=== PATIENT | male | born 1960 | race African-American/Black ===

== ENCOUNTER 2021-09-24 09:13 | Inpatient (IN) | payer OTHER ==
[2021-09-24 10:24] VITALS: BMI 27.0
[2021-09-24] MEDS ORDERED: chlordiazePOXIDE HCL 25 MG CAPSULE PO SCH (11:00)
[2021-09-24] MEDS ORDERED: chlordiazePOXIDE HCL 25 MG CAPSULE PO PRN (11:16)
[2021-09-24] MEDS ORDERED: MAGNESIUM CITRATE 300 ML BOTTLE PO PRN (11:16)
[2021-09-24] MEDS ORDERED: DICYCLOMINE HCL 10 MG CAPSULE PO PRN (11:16)
[2021-09-24] MEDS ORDERED: IBUPROFEN 600 MG TABLET (FP) PO PRN (11:16)
[2021-09-24] MEDS ORDERED: LOPERAMIDE HCL 2 MG CAPSULE PO PRN (11:16)
[2021-09-24] MEDS ORDERED: NICOTINE 10 MG CARTRIDGE (INHALER) IH PRN (11:16)
[2021-09-24] MEDS ORDERED: ONDANSETRON *ODT* 4 MG TABLET SL PRN (11:16)
[2021-09-24] MEDS ORDERED: ACETAMINOPHEN 325 MG TABLET (FP) PO PRN ×2 (11:16)
[2021-09-24] MEDS ORDERED: IBUPROFEN 400 MG TABLET (FP) PO PRN (11:16)
[2021-09-24] MEDS ORDERED: MAG HYDROX/AL HYDROX/SIMETH 30 ML UNIT-DOSE CUP PO PRN (11:16)
[2021-09-24] MEDS ORDERED: MAGNESIUM HYDROX 2400MG/30ML ORAL SUSPENSION 30 ML CUP PO PRN (11:16)
[2021-09-24] MEDS ORDERED: BENZOCAINE/MENTHOL (CHLORASEPTIC ) LOZENGE MM PRN (11:16)
[2021-09-24] MEDS ORDERED: BISMUTH SUBSALICYLATE 262 MG/15 ML BTL PO PRN (11:16)
[2021-09-24] MEDS ORDERED: methaDONE HCL 40 MG DISPERSABLE TABLET PO SCH (11:30)
[2021-09-24] MEDS ORDERED: methaDONE HCL 10 MG TABLET ONE (11:51)
[2021-09-24] MEDS ORDERED: methaDONE HCL 40 MG DISPERSABLE TABLET ONE (11:52)
[2021-09-24] MEDS: methaDONE 40 MG, methaDONE 10 MG PO SCH (12:00)
[2021-09-24] MEDS: PRENATAL VITAMINS W/ FOLIC ACID TABLET (FP) PO SCH (12:09)
[2021-09-24] MEDS: NICOTINE 14 MG/24 HOURS TOPICAL PATCH TD SCH (12:09)
[2021-09-24 14:36] LABS: HEMATOCRIT 40.2 % (35.4-49); HEMOGLOBIN 13.1 GM/dL (11.7-16.9); MCH 29.9 pg (25.7-33.7); MCHC 32.6 g/dl (32.0-35.9); MEAN CELL VOLUME 91.8 fl (80-96); MEAN PLT VOLUME 8.9 fl (7.5-11.1); PLATELET COUNT 312 10^3/uL (134-434); RBC 4.38 M/mm3 (4.00-5.60); RDW 13.3 % (11.9-15.9)
[2021-09-24] MEDS: hydrOXYzine PAMOATE 25 MG CAPSULE (FP) PO SCH ×3 (15:13→22:14)
[2021-09-24 15:58] LABS: ALBUMIN 3.9 g/dl (3.4-5.0); CALCIUM 9.2 mg/dL (8.5-10.1)
[2021-09-24 16:01] LABS: CREATININE 1.2 mg/dL (0.55-1.3)
[2021-09-24 16:03] LABS: BILIRUBIN,TOTAL 0.5 mg/dL (0.2-1); TOT PROT 7.8 g/dl (6.4-8.2)
[2021-09-24] MEDS: chlordiazePOXIDE HCL 25 MG CAPSULE PO SCH ×2 (17:36→22:14)
[2021-09-24] MEDS ORDERED: SUVOREXANT 10 MG TABLET PO PRN (22:00)
[2021-09-24] MEDS ORDERED: MELATONIN 5 MG TABLETS PO SCH (22:00)
[2021-09-24] MEDS: THIAMINE HCL 100 MG TABLET (FP) PO SCH (22:14)
[2021-09-25] MEDS: hydrOXYzine PAMOATE 25 MG CAPSULE (FP) PO SCH ×5 (05:09→22:14)
[2021-09-25] MEDS: chlordiazePOXIDE HCL 25 MG CAPSULE PO SCH ×3 (05:09→18:03)
[2021-09-25] MEDS ORDERED: methaDONE HCL 40 MG DISPERSABLE TABLET ONE (09:19)
[2021-09-25] MEDS ORDERED: methaDONE HCL 10 MG TABLET ONE (09:19)
[2021-09-25] MEDS: METHOCARBAMOL 500 MG TABLET PO PRN (10:09)
[2021-09-25] MEDS: NICOTINE 14 MG/24 HOURS TOPICAL PATCH TD SCH (10:09)
[2021-09-25] MEDS: ARIPiprazole 5 MG TABLET PO SCH (10:09)
[2021-09-25] MEDS: PRENATAL VITAMINS W/ FOLIC ACID TABLET (FP) PO SCH (10:09)
[2021-09-25] MEDS: methaDONE 40 MG, methaDONE 10 MG PO SCH (10:09)
[2021-09-25] MEDS: THIAMINE HCL 100 MG TABLET (FP) PO SCH (22:14)
[2021-09-26] MEDS: chlordiazePOXIDE HCL 25 MG CAPSULE PO SCH ×5 (01:13→23:00)
[2021-09-26] MEDS: hydrOXYzine PAMOATE 25 MG CAPSULE (FP) PO SCH ×5 (05:07→23:00)
[2021-09-26] MEDS ORDERED: methaDONE HCL 40 MG DISPERSABLE TABLET ONE (09:31)
[2021-09-26] MEDS ORDERED: methaDONE HCL 10 MG TABLET ONE (09:31)
[2021-09-26] MEDS: methaDONE 40 MG, methaDONE 10 MG PO SCH (10:02)
[2021-09-26] MEDS: METHOCARBAMOL 500 MG TABLET PO PRN (10:03)
[2021-09-26] MEDS: NICOTINE 14 MG/24 HOURS TOPICAL PATCH TD SCH (10:05)
[2021-09-26] MEDS: ARIPiprazole 5 MG TABLET PO SCH (10:05)
[2021-09-26] MEDS: PRENATAL VITAMINS W/ FOLIC ACID TABLET (FP) PO SCH (10:05)
[2021-09-26] MEDS: THIAMINE HCL 100 MG TABLET (FP) PO SCH (23:00)
[2021-09-27] MEDS ORDERED: chlordiazePOXIDE HCL 10 MG CAPSULE PO PRN
[2021-09-27] MEDS: chlordiazePOXIDE HCL 10 MG CAPSULE PO SCH ×4 (05:25→22:37)
[2021-09-27] MEDS: hydrOXYzine PAMOATE 25 MG CAPSULE (FP) PO SCH ×5 (05:25→22:37)
[2021-09-27] MEDS ORDERED: methaDONE HCL 10 MG TABLET ONE (09:05)
[2021-09-27] MEDS ORDERED: methaDONE HCL 40 MG DISPERSABLE TABLET ONE (09:05)
[2021-09-27] MEDS: ARIPiprazole 5 MG TABLET PO SCH (10:20)
[2021-09-27] MEDS: PRENATAL VITAMINS W/ FOLIC ACID TABLET (FP) PO SCH (10:20)
[2021-09-27] MEDS: methaDONE 40 MG, methaDONE 10 MG PO SCH (10:20)
[2021-09-27] MEDS: NICOTINE 14 MG/24 HOURS TOPICAL PATCH TD SCH (10:21)
[2021-09-27] MEDS: METHOCARBAMOL 500 MG TABLET PO PRN (10:22)
[2021-09-27] MEDS: THIAMINE HCL 100 MG TABLET (FP) PO SCH (22:37)
[2021-09-28] MEDS: chlordiazePOXIDE HCL 10 MG CAPSULE PO SCH ×2 (05:14→18:46)
[2021-09-28] MEDS: hydrOXYzine PAMOATE 25 MG CAPSULE (FP) PO SCH ×5 (05:14→22:18)
[2021-09-28] MEDS ORDERED: methaDONE HCL 40 MG DISPERSABLE TABLET ONE (09:36)
[2021-09-28] MEDS ORDERED: methaDONE HCL 10 MG TABLET ONE (09:36)
[2021-09-28] MEDS: ARIPiprazole 5 MG TABLET PO SCH (10:08)
[2021-09-28] MEDS: NICOTINE 14 MG/24 HOURS TOPICAL PATCH TD SCH (10:09)
[2021-09-28] MEDS: methaDONE 40 MG, methaDONE 10 MG PO SCH (10:09)
[2021-09-28] MEDS: PRENATAL VITAMINS W/ FOLIC ACID TABLET (FP) PO SCH (10:09)
[2021-09-28] MEDS: METHOCARBAMOL 500 MG TABLET PO PRN (10:09)
[2021-09-28] MEDS ORDERED: cloNIDine HCL 0.1 MG TABLET PO ONE (11:01)
[2021-09-28] MEDS: THIAMINE HCL 100 MG TABLET (FP) PO SCH (22:19)
[2021-09-29] MEDS ORDERED: chlordiazePOXIDE HCL 10 MG CAPSULE PO ONE (05:00)
[2021-09-29] MEDS: hydrOXYzine PAMOATE 25 MG CAPSULE (FP) PO SCH ×2 (05:08→09:16)
[2021-09-29] MEDS ORDERED: methaDONE HCL 10 MG TABLET PO ONE (07:15)
[2021-09-29] MEDS ORDERED: methaDONE HCL 10 MG TABLET ONE (07:43)
[2021-09-29] MEDS ORDERED: methaDONE HCL 40 MG DISPERSABLE TABLET ONE (07:44)
[2021-09-29 08:58] VITALS: BP 136/79; PULSE 68; TEMP 97.3
[2021-09-29] MEDS: ARIPiprazole 5 MG TABLET PO SCH (09:15)
[2021-09-29] MEDS: NICOTINE 14 MG/24 HOURS TOPICAL PATCH TD SCH (09:15)
[2021-09-29] MEDS: methaDONE 40 MG, methaDONE 10 MG PO SCH (09:15)
[2021-09-29] MEDS: PRENATAL VITAMINS W/ FOLIC ACID TABLET (FP) PO SCH (09:16)
== END 2021-09-29 09:02 | disposition home or self-care (01) | DRG 773 ==
LOC: YASAS 09:13 → Y6N 11:16
PROVIDERS: ADMIT Allergy & Immunology; ATTEND Surgery
PROC: HZ2ZZZZ Detoxification Services for Substance Abuse Treatment (ICD-10-PCS; principal; 2021-09-24)
DX: F11.23 Opioid dependence with withdrawal (principal); F10.230 Alcohol dependence with withdrawal, uncomplicated; F14.20 Cocaine dependence, uncomplicated; F13.20 Sedative, hypnotic or anxiolytic dependence, uncomplicated; F17.210 Nicotine dependence, cigarettes, uncomplicated; F25.9 Schizoaffective disorder, unspecified; F19.280 Other psychoactive substance dependence with psychoactive substance-induced anxiety disorder; F19.282 Other psychoactive substance dependence with psychoactive substance-induced sleep disorder; F19.24 Other psychoactive substance dependence with psychoactive substance-induced mood disorder; M17.0 Bilateral primary osteoarthritis of knee; R03.0 Elevated blood-pressure reading, without diagnosis of hypertension; R73.9 Hyperglycemia, unspecified; Z90.5 Acquired absence of kidney
CPT/HCPCS: 36415; 80053; 83036; 85027; 86780; 87811; 93005; 93010; C9803-CS; J0735; U0003; U0005

== ENCOUNTER 2021-11-05 13:58 | Inpatient (IN) | payer OTHER ==
[2021-11-05 15:14] VITALS: RESP 18; BMI 27.0
[2021-11-05] MEDS ORDERED: NICOTINE 10 MG CARTRIDGE (INHALER) IH PRN (18:09)
[2021-11-05] MEDS ORDERED: ONDANSETRON *ODT* 4 MG TABLET SL PRN (18:09)
[2021-11-05] MEDS ORDERED: METHOCARBAMOL 500 MG TABLET PO PRN (18:09)
[2021-11-05] MEDS ORDERED: DICYCLOMINE HCL 10 MG CAPSULE PO PRN (18:09)
[2021-11-05] MEDS ORDERED: MAGNESIUM CITRATE 300 ML BOTTLE PO PRN (18:09)
[2021-11-05] MEDS ORDERED: chlordiazePOXIDE HCL 25 MG CAPSULE PO PRN (18:09)
[2021-11-05] MEDS ORDERED: ACETAMINOPHEN 325 MG TABLET (FP) PO PRN ×2 (18:09)
[2021-11-05] MEDS ORDERED: LOPERAMIDE HCL 2 MG CAPSULE PO PRN (18:09)
[2021-11-05] MEDS ORDERED: IBUPROFEN 400 MG TABLET (FP) PO PRN (18:09)
[2021-11-05] MEDS ORDERED: MAG HYDROX/AL HYDROX/SIMETH 30 ML UNIT-DOSE CUP PO PRN (18:09)
[2021-11-05] MEDS ORDERED: MAGNESIUM HYDROX 2400MG/30ML ORAL SUSPENSION 30 ML CUP PO PRN (18:09)
[2021-11-05] MEDS ORDERED: BENZOCAINE/MENTHOL (CHLORASEPTIC ) LOZENGE MM PRN (18:09)
[2021-11-05] MEDS ORDERED: BISMUTH SUBSALICYLATE 524 MG/30 ML PO PRN (18:09)
[2021-11-05] MEDS ORDERED: IBUPROFEN 600 MG TABLET (FP) PO PRN (18:09)
[2021-11-05] MEDS ORDERED: methaDONE HCL 40 MG DISPERSABLE TABLET PO SCH (18:15)
[2021-11-05] MEDS ORDERED: chlordiazePOXIDE HCL 25 MG CAPSULE ONE (19:02)
[2021-11-05] MEDS: chlordiazePOXIDE HCL 25 MG CAPSULE PO SCH ×2 (19:02→22:53)
[2021-11-05] MEDS ORDERED: PRENATAL VITAMINS W/ FOLIC ACID TABLET (FP) PO SCH (19:30)
[2021-11-05] MEDS ORDERED: NICOTINE 14 MG/24 HOURS TOPICAL PATCH TD SCH (19:30)
[2021-11-05] MEDS ORDERED: THIAMINE HCL 100 MG TABLET (FP) PO SCH (22:00)
[2021-11-05] MEDS ORDERED: MELATONIN 5 MG TABLETS PO SCH (22:00)
[2021-11-05] MEDS: hydrOXYzine PAMOATE 25 MG CAPSULE (FP) PO SCH (22:53)
[2021-11-06 06:15] VITALS: BP 135/65; PULSE 50; TEMP 97.8
[2021-11-06] MEDS: chlordiazePOXIDE HCL 25 MG CAPSULE PO SCH (08:12)
[2021-11-06] MEDS: hydrOXYzine PAMOATE 25 MG CAPSULE (FP) PO SCH (08:13)
[2021-11-06 10:12] LABS: HEMATOCRIT 36.8 % (35.4-49); HEMOGLOBIN 12.2 GM/dL (11.7-16.9); MCH 30.1 pg (25.7-33.7); MCHC 33.1 g/dl (32.0-35.9); MEAN CELL VOLUME 90.9 fl (80-96); MEAN PLT VOLUME 8.7 fl (7.5-11.1); PLATELET COUNT 241 10^3/uL (134-434); RBC 4.05 M/mm3 (4.00-5.60); RDW 13.8 % (11.9-15.9); WHITE BLOOD COUNT 4.7 K/mm3 (4.0-10.0)
[2021-11-06 10:34] LABS: ALBUMIN 3.1 g/dl (3.4-5.0); BLOOD UREA NITROGEN 12.4 mg/dL (7-18)
[2021-11-06 10:39] LABS: BILIRUBIN,TOTAL 0.8 mg/dL (0.2-1); TOT PROT 6.5 g/dl (6.4-8.2)
[2021-11-07] MEDS ORDERED: chlordiazePOXIDE HCL 25 MG CAPSULE PO SCH (05:00)
[2021-11-08] MEDS ORDERED: chlordiazePOXIDE HCL 10 MG CAPSULE PO PRN
[2021-11-08] MEDS ORDERED: chlordiazePOXIDE HCL 10 MG CAPSULE PO SCH (05:00)
[2021-11-09] MEDS ORDERED: chlordiazePOXIDE HCL 10 MG CAPSULE PO SCH (05:00)
[2021-11-10] MEDS ORDERED: chlordiazePOXIDE HCL 10 MG CAPSULE PO ONE (05:00)
== END 2021-11-06 09:58 | disposition home or self-care (01) | DRG 773 ==
LOC: YASAS 13:58 → Y6N 18:35
PROVIDERS: ADMIT Allergy & Immunology; ATTEND Surgery
PROC: HZ2ZZZZ Detoxification Services for Substance Abuse Treatment (ICD-10-PCS; principal; 2021-11-05)
DX: F10.230 Alcohol dependence with withdrawal, uncomplicated (principal); F11.20 Opioid dependence, uncomplicated; F14.20 Cocaine dependence, uncomplicated; F13.20 Sedative, hypnotic or anxiolytic dependence, uncomplicated; F17.210 Nicotine dependence, cigarettes, uncomplicated; F25.9 Schizoaffective disorder, unspecified; M17.0 Bilateral primary osteoarthritis of knee; Z99.89 Dependence on other enabling machines and devices
CPT/HCPCS: 36415; 80053; 85027; 86780; C9803-CS; U0003; U0005

== ENCOUNTER 2021-11-15 14:56 | Inpatient (IN) | payer OTHER ==
[2021-11-15 15:46] VITALS: BMI 26.7
[2021-11-15] MEDS ORDERED: MAG HYDROX/AL HYDROX/SIMETH 30 ML UNIT-DOSE CUP PO PRN (16:23)
[2021-11-15] MEDS ORDERED: BENZOCAINE/MENTHOL (CHLORASEPTIC ) LOZENGE MM PRN (16:23)
[2021-11-15] MEDS ORDERED: P-EPHED 60MG/TRIPROLIDI 2.5MG TABLET PO PRN (16:23)
[2021-11-15] MEDS ORDERED: ACETAMINOPHEN 325 MG TABLET (FP) PO PRN ×2 (16:23)
[2021-11-15] MEDS ORDERED: guaiFENesin 200 MG/10 ML 10 ML UNIT-DOSE CUPS PO PRN (16:23)
[2021-11-15] MEDS ORDERED: NICOTINE POLACRILEX 2 MG GUM BUC PRN (16:23)
[2021-11-15] MEDS ORDERED: MAGNESIUM HYDROX 2400MG/30ML ORAL SUSPENSION 30 ML CUP PO PRN (16:23)
[2021-11-15] MEDS ORDERED: IBUPROFEN 600 MG TABLET (FP) PO PRN (16:23)
[2021-11-15] MEDS ORDERED: BISMUTH SUBSALICYLATE 524 MG/30 ML PO PRN (16:23)
[2021-11-15] MEDS ORDERED: LOPERAMIDE HCL 2 MG CAPSULE PO PRN (16:23)
[2021-11-15] MEDS ORDERED: MAGNESIUM CITRATE 300 ML BOTTLE PO PRN (16:23)
[2021-11-15] MEDS ORDERED: IBUPROFEN 400 MG TABLET (FP) PO PRN (16:23)
[2021-11-15] MEDS ORDERED: MELATONIN 5 MG TABLETS PO PRN (16:23)
[2021-11-15] MEDS ORDERED: DICYCLOMINE HCL 10 MG CAPSULE PO PRN (16:23)
[2021-11-15] MEDS ORDERED: ONDANSETRON *ODT* 4 MG TABLET SL PRN (16:23)
[2021-11-15] MEDS ORDERED: diazePAM 5 MG TABLET PO PRN (16:25)
[2021-11-15] MEDS: diazePAM 5 MG TABLET PO SCH (22:28)
[2021-11-15] MEDS: THIAMINE HCL 100 MG TABLET (FP) PO SCH (22:28)
[2021-11-15] MEDS: hydrOXYzine PAMOATE 25 MG CAPSULE (FP) PO PRN (22:28)
[2021-11-15] MEDS: METHOCARBAMOL 500 MG TABLET PO PRN (22:28)
[2021-11-16] MEDS: diazePAM 5 MG TABLET PO SCH ×4 (05:42→23:08)
[2021-11-16] MEDS ORDERED: methaDONE HCL 10 MG TABLET PO ONE (10:07)
[2021-11-16] MEDS: PRENATAL VITAMINS W/ FOLIC ACID TABLET (FP) PO SCH (10:58)
[2021-11-16] MEDS: amLODIPine BESYLATE 10 MG TABLET (FP) PO SCH (10:58)
[2021-11-16] MEDS: hydrOXYzine PAMOATE 25 MG CAPSULE (FP) PO PRN ×3 (10:59→23:07)
[2021-11-16] MEDS: METHOCARBAMOL 500 MG TABLET PO PRN ×2 (10:59→17:27)
[2021-11-16] MEDS: cloNIDine HCL 0.1 MG TABLET PO PRN (10:59)
[2021-11-16 12:45] LABS: CALCIUM 9.1 mg/dL (8.5-10.1); HEMATOCRIT 42.2 % (35.4-49); HEMOGLOBIN 13.5 GM/dL (11.7-16.9); MCH 29.1 pg (25.7-33.7); MCHC 31.9 g/dl (32.0-35.9); MEAN PLT VOLUME 8.8 fl (7.5-11.1); PLATELET COUNT 317 10^3/uL (134-434); RBC 4.64 M/mm3 (4.00-5.60); RDW 14.2 % (11.9-15.9); WHITE BLOOD COUNT 4.4 K/mm3 (4.0-10.0)
[2021-11-16 12:46] LABS: ALBUMIN 3.5 g/dl (3.4-5.0); BLOOD UREA NITROGEN 13.2 mg/dL (7-18)
[2021-11-16 12:50] LABS: BILIRUBIN,TOTAL 0.5 mg/dL (0.2-1)
[2021-11-16] MEDS: THIAMINE HCL 100 MG TABLET (FP) PO SCH (23:07)
[2021-11-17] MEDS: diazePAM 5 MG TABLET PO SCH ×3 (05:57→23:43)
[2021-11-17] MEDS ORDERED: methaDONE 40 MG, methaDONE 10 MG PO ONE (06:00)
[2021-11-17] MEDS ORDERED: methaDONE HCL 10 MG TABLET PO ONE (06:00)
[2021-11-17] MEDS: amLODIPine BESYLATE 10 MG TABLET (FP) PO SCH (10:14)
[2021-11-17] MEDS: PRENATAL VITAMINS W/ FOLIC ACID TABLET (FP) PO SCH (10:14)
[2021-11-17] MEDS: THIAMINE HCL 100 MG TABLET (FP) PO SCH (23:44)
[2021-11-18] MEDS: diazePAM 5 MG TABLET PO SCH ×2 (05:36→18:21)
[2021-11-18] MEDS: cloNIDine HCL 0.1 MG TABLET PO PRN (10:39)
[2021-11-18] MEDS: PRENATAL VITAMINS W/ FOLIC ACID TABLET (FP) PO SCH (10:39)
[2021-11-18] MEDS: METHOCARBAMOL 500 MG TABLET PO PRN (10:39)
[2021-11-18] MEDS: amLODIPine BESYLATE 10 MG TABLET (FP) PO SCH (10:39)
[2021-11-18] MEDS ORDERED: methaDONE HCL 10 MG TABLET PO ONE (11:00)
[2021-11-18] MEDS ORDERED: methaDONE 40 MG, methaDONE 10 MG PO ONE (11:15)
[2021-11-18] MEDS: hydrOXYzine PAMOATE 25 MG CAPSULE (FP) PO PRN (18:22)
[2021-11-18] MEDS: THIAMINE HCL 100 MG TABLET (FP) PO SCH (22:45)
[2021-11-19] MEDS ORDERED: methaDONE HCL 10 MG TABLET PO SCH (06:00)
[2021-11-19] MEDS ORDERED: methaDONE 40 MG, methaDONE 10 MG PO SCH (06:00)
[2021-11-19] MEDS ORDERED: diazePAM 5 MG TABLET PO ONE (06:00)
[2021-11-19 09:55] VITALS: TEMP 97.3
[2021-11-19] MEDS: METHOCARBAMOL 500 MG TABLET PO PRN (10:34)
[2021-11-19] MEDS: amLODIPine BESYLATE 10 MG TABLET (FP) PO SCH (10:34)
[2021-11-19] MEDS: PRENATAL VITAMINS W/ FOLIC ACID TABLET (FP) PO SCH (10:34)
[2021-11-19] MEDS: cloNIDine HCL 0.1 MG TABLET PO PRN (10:34)
[2021-11-19] MEDS: hydrOXYzine PAMOATE 25 MG CAPSULE (FP) PO PRN (10:34)
[2021-11-19 13:38] VITALS: BP 127/76; PULSE 64; RESP 18
== END 2021-11-19 15:00 | disposition other institution (70) | DRG 773 ==
LOC: YASAS 14:56 → Y6N 17:23
PROVIDERS: ADMIT Allergy & Immunology; ATTEND Surgery
PROC: HZ2ZZZZ Detoxification Services for Substance Abuse Treatment (ICD-10-PCS; principal; 2021-11-15)
DX: F11.23 Opioid dependence with withdrawal (principal); F10.230 Alcohol dependence with withdrawal, uncomplicated; F14.20 Cocaine dependence, uncomplicated; F17.210 Nicotine dependence, cigarettes, uncomplicated; I10 Essential (primary) hypertension; M17.0 Bilateral primary osteoarthritis of knee; M54.50 Low back pain, unspecified; G89.29 Other chronic pain; Z90.5 Acquired absence of kidney; Z99.89 Dependence on other enabling machines and devices; Z91.014 Allergy to mammalian meats
CPT/HCPCS: 36415; 80053; 82962; 85027; 86780; 87811; C9803-CS; U0003; U0005

== ENCOUNTER 2021-11-19 15:19 | Inpatient (IN) | payer OTHER ==
[2021-11-19 16:13] VITALS: RESP 18
[2021-11-19] MEDS ORDERED: MELATONIN 5 MG TABLETS PO SCH (22:00)
[2021-11-19] MEDS ORDERED: MAG HYDROX/AL HYDROX/SIMETH 30 ML UNIT-DOSE CUP PO PRN (22:15)
[2021-11-19] MEDS ORDERED: P-EPHED 60MG/TRIPROLIDI 2.5MG TABLET PO PRN (22:15)
[2021-11-19] MEDS ORDERED: MAGNESIUM CITRATE 300 ML BOTTLE PO PRN (22:15)
[2021-11-19] MEDS ORDERED: guaiFENesin 200 MG/10 ML 10 ML UNIT-DOSE CUPS PO PRN (22:15)
[2021-11-19] MEDS ORDERED: NICOTINE POLACRILEX 2 MG GUM BUC PRN (22:15)
[2021-11-19] MEDS ORDERED: LOPERAMIDE HCL 2 MG CAPSULE PO PRN (22:15)
[2021-11-19] MEDS ORDERED: MAGNESIUM HYDROX 2400MG/30ML ORAL SUSPENSION 30 ML CUP PO PRN (22:15)
[2021-11-19] MEDS ORDERED: IBUPROFEN 400 MG TABLET (FP) PO PRN (22:15)
[2021-11-19] MEDS ORDERED: BENZOCAINE/MENTHOL (CHLORASEPTIC ) LOZENGE MM PRN (22:15)
[2021-11-19] MEDS ORDERED: ACETAMINOPHEN 325 MG TABLET (FP) PO PRN (22:15)
[2021-11-20] MEDS ORDERED: methaDONE 40 MG, methaDONE 10 MG PO SCH (06:00)
[2021-11-20 07:30] VITALS: BP 138/79; PULSE 59; TEMP 96.2
[2021-11-20] MEDS ORDERED: PRENATAL VITAMINS W/ FOLIC ACID TABLET (FP) PO SCH (10:00)
[2021-11-20] MEDS ORDERED: NICOTINE 21 MG/24 HOURS TOPICAL PATCH TD SCH (10:00)
[2021-11-20] MEDS ORDERED: methaDONE HCL 40 MG DISPERSABLE TABLET PO SCH (10:00)
[2021-11-20] MEDS ORDERED: amLODIPine BESYLATE 10 MG TABLET (FP) PO SCH (10:00)
[2021-11-20] MEDS ORDERED: THIAMINE HCL 100 MG TABLET (FP) PO SCH (22:00)
== END 2021-11-20 09:16 | disposition left against medical advice (07) | DRG 770 ==
LOC: YASAS 15:19 → Y5N 15:20
PROVIDERS: ADMIT Allergy & Immunology; ATTEND Psychiatry & Neurology Pain Medicine
PROC: HZ42ZZZ Group Counseling for Substance Abuse Treatment, Cognitive-Behavioral (ICD-10-PCS; principal; 2021-11-19)
DX: F11.20 Opioid dependence, uncomplicated (principal); F10.20 Alcohol dependence, uncomplicated; F14.20 Cocaine dependence, uncomplicated; F13.20 Sedative, hypnotic or anxiolytic dependence, uncomplicated; F17.210 Nicotine dependence, cigarettes, uncomplicated; F25.9 Schizoaffective disorder, unspecified; Z99.89 Dependence on other enabling machines and devices

== ENCOUNTER 2021-12-15 11:02 | Inpatient (IN) | payer OTHER ==
[2021-12-15 11:29] VITALS: BMI 24.4
[2021-12-15] MEDS ORDERED: NICOTINE 10 MG CARTRIDGE (INHALER) IH PRN (13:04)
[2021-12-15] MEDS ORDERED: IBUPROFEN 400 MG TABLET (FP) PO PRN (13:04)
[2021-12-15] MEDS ORDERED: MAGNESIUM CITRATE 300 ML BOTTLE PO PRN (13:04)
[2021-12-15] MEDS ORDERED: ONDANSETRON *ODT* 4 MG TABLET SL PRN (13:04)
[2021-12-15] MEDS ORDERED: NALOXONE HCL (KLOXXADO) 8 MG SPRAY NS PRN (13:04)
[2021-12-15] MEDS ORDERED: LOPERAMIDE HCL 2 MG CAPSULE PO PRN (13:04)
[2021-12-15] MEDS ORDERED: DICYCLOMINE HCL 10 MG CAPSULE PO PRN (13:04)
[2021-12-15] MEDS ORDERED: BENZOCAINE/MENTHOL (CHLORASEPTIC ) LOZENGE MM PRN (13:04)
[2021-12-15] MEDS ORDERED: BISMUTH SUBSALICYLATE 262 MG/15 ML BTL PO PRN (13:04)
[2021-12-15] MEDS ORDERED: IBUPROFEN 600 MG TABLET (FP) PO PRN (13:04)
[2021-12-15] MEDS ORDERED: MAGNESIUM HYDROX 2400MG/30ML ORAL SUSPENSION 30 ML CUP PO PRN (13:04)
[2021-12-15] MEDS ORDERED: METHOCARBAMOL 500 MG TABLET PO PRN (13:04)
[2021-12-15] MEDS ORDERED: MAG HYDROX/AL HYDROX/SIMETH 30 ML UNIT-DOSE CUP PO PRN (13:04)
[2021-12-15] MEDS ORDERED: ACETAMINOPHEN 325 MG TABLET (FP) PO PRN ×2 (13:04)
[2021-12-15] MEDS ORDERED: diazePAM 5 MG TABLET PO PRN (13:04)
[2021-12-15 17:25] LABS: CALCIUM 9.4 mg/dL (8.5-10.1)
[2021-12-15 17:26] LABS: ALBUMIN 3.9 g/dl (3.4-5.0); BLOOD UREA NITROGEN 16.8 mg/dL (7-18)
[2021-12-15 17:30] LABS: BILIRUBIN,TOTAL 0.4 mg/dL (0.2-1); HEMATOCRIT 42.3 % (35.4-49); HEMOGLOBIN 13.8 GM/dL (11.7-16.9); MCH 29.9 pg (25.7-33.7); MCHC 32.6 g/dl (32.0-35.9); MEAN CELL VOLUME 91.9 fl (80-96); MEAN PLT VOLUME 8.7 fl (7.5-11.1); PLATELET COUNT 277 10^3/uL (134-434); RDW 15.5 % (11.9-15.9)
[2021-12-15 17:31] LABS: TOT PROT 7.5 g/dl (6.4-8.2)
[2021-12-15] MEDS: PRENATAL VITAMINS W/ FOLIC ACID TABLET (FP) PO SCH (19:00)
[2021-12-15] MEDS: hydrOXYzine PAMOATE 25 MG CAPSULE (FP) PO SCH ×4 (19:01→22:27)
[2021-12-15] MEDS: diazePAM 5 MG TABLET PO SCH ×2 (19:02→22:56)
[2021-12-15] MEDS: NICOTINE 14 MG/24 HOURS TOPICAL PATCH TD SCH (19:06)
[2021-12-15] MEDS ORDERED: THIAMINE HCL 100 MG TABLET (FP) PO SCH (22:00)
[2021-12-15] MEDS ORDERED: MELATONIN 5 MG TABLETS PO SCH (22:00)
[2021-12-16] MEDS: diazePAM 5 MG TABLET PO SCH ×2 (05:26→10:54)
[2021-12-16] MEDS: hydrOXYzine PAMOATE 25 MG CAPSULE (FP) PO SCH ×2 (05:26→10:59)
[2021-12-16 09:09] VITALS: RESP 16
[2021-12-16] MEDS ORDERED: amLODIPine BESYLATE 10 MG TABLET (FP) PO SCH (10:30)
[2021-12-16] MEDS ORDERED: methaDONE 40 MG, methaDONE 10 MG PO SCH (10:30)
[2021-12-16] MEDS ORDERED: methaDONE HCL 10 MG TABLET PO SCH (10:30)
[2021-12-16] MEDS: NICOTINE 14 MG/24 HOURS TOPICAL PATCH TD SCH (10:55)
[2021-12-16] MEDS: PRENATAL VITAMINS W/ FOLIC ACID TABLET (FP) PO SCH (10:56)
[2021-12-16 12:51] VITALS: BP 153/83; PULSE 77; TEMP 97.8
[2021-12-17] MEDS ORDERED: diazePAM 5 MG TABLET PO SCH (06:00)
[2021-12-18] MEDS ORDERED: diazePAM 5 MG TABLET PO SCH (06:00)
[2021-12-19] MEDS ORDERED: diazePAM 5 MG TABLET PO ONE (06:00)
== END 2021-12-16 11:33 | disposition left against medical advice (07) | DRG 770 ==
LOC: YASAS 11:02 → Y3N 12:20
PROVIDERS: ADMIT Allergy & Immunology; ATTEND Surgery
PROC: HZ2ZZZZ Detoxification Services for Substance Abuse Treatment (ICD-10-PCS; principal; 2021-12-15)
DX: F11.23 Opioid dependence with withdrawal (principal); F10.230 Alcohol dependence with withdrawal, uncomplicated; F14.20 Cocaine dependence, uncomplicated; F17.210 Nicotine dependence, cigarettes, uncomplicated; F19.24 Other psychoactive substance dependence with psychoactive substance-induced mood disorder; F25.9 Schizoaffective disorder, unspecified; F41.9 Anxiety disorder, unspecified; F32.A Depression, unspecified; M17.0 Bilateral primary osteoarthritis of knee; M54.50 Low back pain, unspecified; G89.29 Other chronic pain; Z90.5 Acquired absence of kidney
CPT/HCPCS: 36415; 80053; 82140; 85027; 86780; C9803-CS; U0003; U0005

== ENCOUNTER 2021-12-15 13:28 | Emergency (ER) | payer OTHER ==
[2021-12-15 13:40] VITALS: BP 157/83; PULSE 56; RESP 17; TEMP 98.6; BMI 25.0
== END 2021-12-15 16:34 | disposition short-term general hospital (02) ==
LOC: JERFT 13:28 → JER 13:28 → JERFT 16:34
DX: S90.852A Superficial foreign body, left foot, initial encounter (principal); W25.XXXA Contact with sharp glass, initial encounter
CPT/HCPCS: 73630-TC-LT; 99283-25

== ENCOUNTER 2022-01-22 09:05 | Inpatient (IN) | payer OTHER ==
[2022-01-22 10:44] VITALS: BMI 26.4
[2022-01-22] MEDS ORDERED: ONDANSETRON *ODT* 4 MG TABLET SL PRN (11:18)
[2022-01-22] MEDS ORDERED: NICOTINE 10 MG CARTRIDGE (INHALER) IH PRN (11:18)
[2022-01-22] MEDS ORDERED: MAG HYDROX/AL HYDROX/SIMETH 30 ML UNIT-DOSE CUP PO PRN (11:18)
[2022-01-22] MEDS ORDERED: BENZOCAINE/MENTHOL (CHLORASEPTIC ) LOZENGE MM PRN (11:18)
[2022-01-22] MEDS ORDERED: LORazepam 1 MG TABLET PO PRN (11:18)
[2022-01-22] MEDS ORDERED: MAGNESIUM CITRATE 300 ML BOTTLE PO PRN (11:18)
[2022-01-22] MEDS ORDERED: NALOXONE HCL (KLOXXADO) 8 MG SPRAY NS PRN (11:18)
[2022-01-22] MEDS ORDERED: LOPERAMIDE HCL 2 MG CAPSULE PO PRN (11:18)
[2022-01-22] MEDS ORDERED: DICYCLOMINE HCL 10 MG CAPSULE PO PRN (11:18)
[2022-01-22] MEDS ORDERED: ACETAMINOPHEN 325 MG TABLET (FP) PO PRN ×2 (11:18)
[2022-01-22] MEDS ORDERED: IBUPROFEN 400 MG TABLET (FP) PO PRN (11:18)
[2022-01-22] MEDS ORDERED: BISMUTH SUBSALICYLATE 524 MG/30 ML PO PRN (11:18)
[2022-01-22] MEDS ORDERED: MAGNESIUM HYDROX 2400MG/30ML ORAL SUSPENSION 30 ML CUP PO PRN (11:18)
[2022-01-22] MEDS ORDERED: IBUPROFEN 600 MG TABLET (FP) PO PRN (11:18)
[2022-01-22] MEDS ORDERED: methaDONE HCL 40 MG DISPERSABLE TABLET PO SCH (11:30)
[2022-01-22] MEDS ORDERED: LORazepam 2 MG TABLET ONE (12:13)
[2022-01-22] MEDS ORDERED: LORazepam 2 MG TABLET PO ONE (12:15)
[2022-01-22] MEDS ORDERED: methaDONE 40 MG, methaDONE 10 MG PO ONE (13:45)
[2022-01-22] MEDS: PRENATAL VITAMINS W/ FOLIC ACID TABLET (FP) PO SCH (13:48)
[2022-01-22] MEDS: LACTULOSE 20 GM/30 ML UDC (FOR ORAL USE ONLY) PO SCH ×2 (13:48→23:06)
[2022-01-22] MEDS: METHOCARBAMOL 500 MG TABLET PO PRN (13:48)
[2022-01-22 15:09] LABS: HEMATOCRIT 41.3 % (35.4-49); HEMOGLOBIN 13.6 GM/dL (11.7-16.9); MCH 29.8 pg (25.7-33.7); MCHC 32.9 g/dl (32.0-35.9); MEAN CELL VOLUME 90.4 fl (80-96); MEAN PLT VOLUME 8.7 fl (7.5-11.1); PLATELET COUNT 309 10^3/uL (134-434); RBC 4.56 M/mm3 (4.00-5.60); RDW 14.3 % (11.9-15.9); WHITE BLOOD COUNT 5.6 K/mm3 (4.0-10.0)
[2022-01-22 15:36] LABS: BLOOD UREA NITROGEN 18.4 mg/dL (7-18); CALCIUM 9.6 mg/dL (8.5-10.1)
[2022-01-22 15:39] LABS: CREATININE 1.1 mg/dL (0.55-1.3)
[2022-01-22 15:40] LABS: BILIRUBIN,TOTAL 0.6 mg/dL (0.2-1); TOT PROT 7.5 g/dl (6.4-8.2)
[2022-01-22] MEDS: LORazepam 2 MG TABLET PO SCH ×2 (17:53→23:06)
[2022-01-22] MEDS: THIAMINE HCL 100 MG TABLET (FP) PO SCH (23:06)
[2022-01-22] MEDS: MELATONIN 5 MG TABLETS PO SCH (23:06)
[2022-01-23] MEDS: LORazepam 2 MG TABLET PO SCH ×4 (05:48→22:42)
[2022-01-23] MEDS: methaDONE 40 MG, methaDONE 10 MG PO SCH (05:48)
[2022-01-23] MEDS: LACTULOSE 20 GM/30 ML UDC (FOR ORAL USE ONLY) PO SCH ×3 (05:48→22:40)
[2022-01-23] MEDS ORDERED: SODIUM CHLORIDE NASAL SPRAY 44 ML BOTTLE NS PRN (09:22)
[2022-01-23] MEDS: hydrOXYzine PAMOATE 25 MG CAPSULE (FP) PO PRN (10:34)
[2022-01-23] MEDS: PRENATAL VITAMINS W/ FOLIC ACID TABLET (FP) PO SCH (10:34)
[2022-01-23] MEDS: amLODIPine BESYLATE 10 MG TABLET (FP) PO SCH (10:34)
[2022-01-23] MEDS: NICOTINE 14 MG/24 HOURS TOPICAL PATCH TD SCH (10:36)
[2022-01-23] MEDS: MELATONIN 5 MG TABLETS PO SCH (22:40)
[2022-01-23] MEDS: THIAMINE HCL 100 MG TABLET (FP) PO SCH (22:40)
[2022-01-24] MEDS: methaDONE 40 MG, methaDONE 10 MG PO SCH (05:41)
[2022-01-24] MEDS: LACTULOSE 20 GM/30 ML UDC (FOR ORAL USE ONLY) PO SCH ×3 (05:41→23:04)
[2022-01-24] MEDS: LORazepam 1 MG TABLET PO SCH ×4 (05:41→23:04)
[2022-01-24] MEDS: METHOCARBAMOL 500 MG TABLET PO PRN (10:30)
[2022-01-24] MEDS: NICOTINE 14 MG/24 HOURS TOPICAL PATCH TD SCH (10:31)
[2022-01-24] MEDS: hydrOXYzine PAMOATE 25 MG CAPSULE (FP) PO PRN (10:31)
[2022-01-24] MEDS: PRENATAL VITAMINS W/ FOLIC ACID TABLET (FP) PO SCH (10:31)
[2022-01-24] MEDS: amLODIPine BESYLATE 10 MG TABLET (FP) PO SCH (10:31)
[2022-01-24] MEDS: THIAMINE HCL 100 MG TABLET (FP) PO SCH (23:04)
[2022-01-24] MEDS: MELATONIN 5 MG TABLETS PO SCH (23:04)
[2022-01-25] MEDS ORDERED: LORazepam 0.5 MG TABLET PO PRN
[2022-01-25] MEDS: LACTULOSE 20 GM/30 ML UDC (FOR ORAL USE ONLY) PO SCH (05:17)
[2022-01-25] MEDS: methaDONE 40 MG, methaDONE 10 MG PO SCH (05:18)
[2022-01-25] MEDS: LORazepam 0.5 MG TABLET PO SCH ×2 (05:18→10:21)
[2022-01-25 10:13] VITALS: BP 128/73; PULSE 71; RESP 17; TEMP 97.5
[2022-01-25] MEDS: METHOCARBAMOL 500 MG TABLET PO PRN (10:20)
[2022-01-25] MEDS: hydrOXYzine PAMOATE 25 MG CAPSULE (FP) PO PRN (10:20)
[2022-01-25] MEDS: PRENATAL VITAMINS W/ FOLIC ACID TABLET (FP) PO SCH (10:20)
[2022-01-25] MEDS: amLODIPine BESYLATE 10 MG TABLET (FP) PO SCH (10:20)
[2022-01-25] MEDS: NICOTINE 14 MG/24 HOURS TOPICAL PATCH TD SCH (10:21)
[2022-01-26] MEDS ORDERED: LORazepam 0.5 MG TABLET PO ONE (05:00)
== END 2022-01-25 12:50 | disposition home or self-care (01) | DRG 773 ==
LOC: YASAS 09:05 → Y6N 12:34
PROVIDERS: ADMIT Allergy & Immunology; ATTEND Surgery
PROC: HZ2ZZZZ Detoxification Services for Substance Abuse Treatment (ICD-10-PCS; principal; 2022-01-22)
DX: F10.230 Alcohol dependence with withdrawal, uncomplicated (principal); F13.230 Sedative, hypnotic or anxiolytic dependence with withdrawal, uncomplicated; F11.20 Opioid dependence, uncomplicated; F14.20 Cocaine dependence, uncomplicated; F17.210 Nicotine dependence, cigarettes, uncomplicated; F25.9 Schizoaffective disorder, unspecified; I10 Essential (primary) hypertension; M17.0 Bilateral primary osteoarthritis of knee; R79.89 Other specified abnormal findings of blood chemistry; Z86.19 Personal history of other infectious and parasitic diseases; Z90.5 Acquired absence of kidney; Z99.89 Dependence on other enabling machines and devices
CPT/HCPCS: 36415; 80053; 82140; 85027; 86780; 87811; C9803-CS; U0003; U0005

== ENCOUNTER 2022-02-14 08:51 | Inpatient (IN) | payer OTHER ==
[2022-02-14 09:14] VITALS: BMI 25.7
[2022-02-14] MEDS ORDERED: MAGNESIUM HYDROX 2400MG/30ML ORAL SUSPENSION 30 ML CUP PO PRN (09:52)
[2022-02-14] MEDS ORDERED: DICYCLOMINE HCL 10 MG CAPSULE PO PRN (09:52)
[2022-02-14] MEDS ORDERED: MAG HYDROX/AL HYDROX/SIMETH 30 ML UNIT-DOSE CUP PO PRN (09:52)
[2022-02-14] MEDS ORDERED: LOPERAMIDE HCL 2 MG CAPSULE PO PRN (09:52)
[2022-02-14] MEDS ORDERED: ACETAMINOPHEN 325 MG TABLET (FP) PO PRN ×2 (09:52)
[2022-02-14] MEDS ORDERED: BENZOCAINE/MENTHOL (CHLORASEPTIC ) LOZENGE MM PRN (09:52)
[2022-02-14] MEDS ORDERED: LORazepam 2 MG TABLET PO ONE (09:52)
[2022-02-14] MEDS ORDERED: IBUPROFEN 400 MG TABLET (FP) PO PRN (09:52)
[2022-02-14] MEDS ORDERED: LORazepam 1 MG TABLET PO PRN (09:52)
[2022-02-14] MEDS ORDERED: BISMUTH SUBSALICYLATE 524 MG/30 ML PO PRN (09:52)
[2022-02-14] MEDS ORDERED: POLYETHYLENE GLYCOL (HEALTHYLAX) 3350 17 GM PACKET PO PRN (09:52)
[2022-02-14] MEDS ORDERED: NICOTINE 10 MG CARTRIDGE (INHALER) IH PRN (09:52)
[2022-02-14] MEDS ORDERED: ONDANSETRON *ODT* 4 MG TABLET SL PRN (09:52)
[2022-02-14] MEDS ORDERED: NALOXONE HCL (KLOXXADO) 8 MG SPRAY NS PRN (09:52)
[2022-02-14] MEDS ORDERED: METHYL SALICYLATE/MENTHOL OINT 30 GM TUBE TP PRN (09:55)
[2022-02-14] MEDS ORDERED: LORazepam 1 MG TABLET PO ONE (13:05)
[2022-02-14] MEDS ORDERED: LIDOCAINE 5% TOPICAL PATCH TP ONE (13:05)
[2022-02-14] MEDS: PRENATAL VITAMINS W/ FOLIC ACID TABLET (FP) PO SCH (13:18)
[2022-02-14] MEDS: METHOCARBAMOL 500 MG TABLET PO PRN (13:18)
[2022-02-14] MEDS: LIDOCAINE 5% TOPICAL PATCH TP SCH (13:21)
[2022-02-14] MEDS: NICOTINE 21 MG/24 HOURS TOPICAL PATCH TD SCH (13:23)
[2022-02-14] MEDS: LORazepam 2 MG TABLET PO SCH ×2 (17:54→22:12)
[2022-02-14] MEDS: MELATONIN 5 MG TABLETS PO SCH (22:11)
[2022-02-14] MEDS: THIAMINE HCL 100 MG TABLET (FP) PO SCH (22:11)
[2022-02-14] MEDS: LIDOCAINE PATCH REMOVAL MC SCH ×2 (22:12→22:13)
[2022-02-15] MEDS: LORazepam 2 MG TABLET PO SCH ×4 (05:36→22:29)
[2022-02-15] MEDS: NICOTINE 21 MG/24 HOURS TOPICAL PATCH TD SCH (10:16)
[2022-02-15] MEDS: METHOCARBAMOL 500 MG TABLET PO PRN (10:17)
[2022-02-15] MEDS: PRENATAL VITAMINS W/ FOLIC ACID TABLET (FP) PO SCH (10:17)
[2022-02-15] MEDS: LIDOCAINE 5% TOPICAL PATCH TP SCH (10:20)
[2022-02-15 11:22] LABS: ALBUMIN 3.3 g/dl (3.4-5.0); BLOOD UREA NITROGEN 18.2 mg/dL (7-18); CALCIUM 9.4 mg/dL (8.5-10.1)
[2022-02-15 11:23] LABS: HEMATOCRIT 41.2 % (35.4-49); HEMOGLOBIN 13.2 GM/dL (11.7-16.9); MCH 29.4 pg (25.7-33.7); MCHC 31.9 g/dl (32.0-35.9); MEAN CELL VOLUME 92.1 fl (80-96); MEAN PLT VOLUME 8.7 fl (7.5-11.1); PLATELET COUNT 300 10^3/uL (134-434); RBC 4.48 M/mm3 (4.00-5.60); RDW 14.6 % (11.9-15.9); WHITE BLOOD COUNT 5.3 K/mm3 (4.0-10.0)
[2022-02-15 11:25] LABS: CREATININE 1.1 mg/dL (0.55-1.3)
[2022-02-15 11:27] LABS: BILIRUBIN,TOTAL 0.5 mg/dL (0.2-1); TOT PROT 6.4 g/dl (6.4-8.2)
[2022-02-15] MEDS ORDERED: methaDONE HCL 10 MG TABLET PO ONE (11:28)
[2022-02-15] MEDS ORDERED: methaDONE 40 MG, methaDONE 10 MG PO ONE (11:45)
[2022-02-15] MEDS: THIAMINE HCL 100 MG TABLET (FP) PO SCH (22:29)
[2022-02-15] MEDS: MELATONIN 5 MG TABLETS PO SCH (22:29)
[2022-02-15] MEDS: LIDOCAINE PATCH REMOVAL MC SCH ×2 (22:30)
[2022-02-16] MEDS: LORazepam 1 MG TABLET PO SCH ×3 (05:35→17:16)
[2022-02-16] MEDS: methaDONE 40 MG, methaDONE 10 MG PO SCH (05:35)
[2022-02-16] MEDS ORDERED: methaDONE HCL 10 MG TABLET PO SCH (06:00)
[2022-02-16] MEDS: NICOTINE 21 MG/24 HOURS TOPICAL PATCH TD SCH (10:24)
[2022-02-16] MEDS: PRENATAL VITAMINS W/ FOLIC ACID TABLET (FP) PO SCH (10:24)
[2022-02-16] MEDS: LIDOCAINE 5% TOPICAL PATCH TP SCH (10:24)
[2022-02-16] MEDS: METHOCARBAMOL 500 MG TABLET PO PRN (17:16)
[2022-02-16] MEDS: THIAMINE HCL 100 MG TABLET (FP) PO SCH (22:26)
[2022-02-16] MEDS: MELATONIN 5 MG TABLETS PO SCH (22:26)
[2022-02-16] MEDS: LIDOCAINE PATCH REMOVAL MC SCH ×2 (22:27)
[2022-02-17] MEDS ORDERED: LORazepam 0.5 MG TABLET PO PRN
[2022-02-17] MEDS: LORazepam 1 MG TABLET PO SCH (00:28)
[2022-02-17] MEDS: methaDONE 40 MG, methaDONE 10 MG PO SCH (05:45)
[2022-02-17] MEDS: LORazepam 0.5 MG TABLET PO SCH ×4 (05:47→22:07)
[2022-02-17 06:42] VITALS: RESP 18
[2022-02-17] MEDS: LIDOCAINE 5% TOPICAL PATCH TP SCH (10:06)
[2022-02-17] MEDS: PRENATAL VITAMINS W/ FOLIC ACID TABLET (FP) PO SCH (10:07)
[2022-02-17] MEDS: NICOTINE 21 MG/24 HOURS TOPICAL PATCH TD SCH (10:07)
[2022-02-17] MEDS: METHOCARBAMOL 500 MG TABLET PO PRN ×2 (10:09→17:48)
[2022-02-17] MEDS: THIAMINE HCL 100 MG TABLET (FP) PO SCH (22:07)
[2022-02-17] MEDS: MELATONIN 5 MG TABLETS PO SCH (22:08)
[2022-02-17] MEDS: LIDOCAINE PATCH REMOVAL MC SCH ×2 (22:08)
[2022-02-18] MEDS ORDERED: LORazepam 0.5 MG TABLET PO ONE (05:00)
[2022-02-18] MEDS: methaDONE 40 MG, methaDONE 10 MG PO SCH (05:39)
[2022-02-18 09:22] VITALS: BP 141/75; PULSE 80; TEMP 97.1
== END 2022-02-18 09:15 | disposition home or self-care (01) | DRG 773 ==
LOC: YASAS 08:51 → Y6N 09:58
PROVIDERS: ADMIT Allergy & Immunology; ATTEND Family Medicine Addiction Medicine
PROC: HZ2ZZZZ Detoxification Services for Substance Abuse Treatment (ICD-10-PCS; principal; 2022-02-14)
DX: F10.230 Alcohol dependence with withdrawal, uncomplicated (principal); F13.230 Sedative, hypnotic or anxiolytic dependence with withdrawal, uncomplicated; F11.20 Opioid dependence, uncomplicated; F14.20 Cocaine dependence, uncomplicated; F17.210 Nicotine dependence, cigarettes, uncomplicated; F41.9 Anxiety disorder, unspecified; F32.A Depression, unspecified; I10 Essential (primary) hypertension; M15.9 Polyosteoarthritis, unspecified; M25.661 Stiffness of right knee, not elsewhere classified; M54.50 Low back pain, unspecified; G89.29 Other chronic pain; R79.89 Other specified abnormal findings of blood chemistry; Z99.89 Dependence on other enabling machines and devices
CPT/HCPCS: 36415; 80053; 82140; 85027; 86780; 87811; C9803-CS; U0003; U0005

== ENCOUNTER 2022-03-14 09:50 | Inpatient (IN) | payer OTHER ==
[2022-03-14 11:06] VITALS: BMI 24.5
[2022-03-14] MEDS ORDERED: NICOTINE 10 MG CARTRIDGE (INHALER) IH PRN (12:05)
[2022-03-14] MEDS ORDERED: DICYCLOMINE HCL 10 MG CAPSULE PO PRN (12:05)
[2022-03-14] MEDS ORDERED: POLYETHYLENE GLYCOL (HEALTHYLAX) 3350 17 GM PACKET PO PRN (12:05)
[2022-03-14] MEDS ORDERED: ONDANSETRON *ODT* 4 MG TABLET SL PRN (12:05)
[2022-03-14] MEDS ORDERED: LOPERAMIDE HCL 2 MG CAPSULE PO PRN (12:05)
[2022-03-14] MEDS ORDERED: BENZOCAINE/MENTHOL (CHLORASEPTIC ) LOZENGE MM PRN (12:05)
[2022-03-14] MEDS ORDERED: IBUPROFEN 400 MG TABLET (FP) PO PRN (12:05)
[2022-03-14] MEDS ORDERED: LORazepam 1 MG TABLET PO PRN (12:05)
[2022-03-14] MEDS ORDERED: MAGNESIUM HYDROX 2400MG/30ML ORAL SUSPENSION 30 ML CUP PO PRN (12:05)
[2022-03-14] MEDS ORDERED: NALOXONE HCL (KLOXXADO) 8 MG SPRAY NS PRN (12:05)
[2022-03-14] MEDS ORDERED: BISMUTH SUBSALICYLATE 524 MG/30 ML PO PRN (12:05)
[2022-03-14] MEDS ORDERED: MAG HYDROX/AL HYDROX/SIMETH 30 ML UNIT-DOSE CUP PO PRN (12:05)
[2022-03-14] MEDS ORDERED: ACETAMINOPHEN 325 MG TABLET (FP) PO PRN ×2 (12:05)
[2022-03-14] MEDS: NICOTINE 21 MG/24 HOURS TOPICAL PATCH TD SCH (12:55)
[2022-03-14] MEDS: METHYL SALICYLATE/MENTHOL OINT 30 GM TUBE TP SCH ×2 (13:34→22:23)
[2022-03-14] MEDS: LORazepam 2 MG TABLET PO SCH ×2 (17:20→22:22)
[2022-03-14] MEDS: MELATONIN 5 MG TABLETS PO SCH (22:22)
[2022-03-14] MEDS: THIAMINE HCL 100 MG TABLET (FP) PO SCH (22:24)
[2022-03-14] MEDS: hydrOXYzine PAMOATE 25 MG CAPSULE (FP) PO PRN (22:24)
[2022-03-15] MEDS: LORazepam 2 MG TABLET PO SCH ×4 (05:48→22:18)
[2022-03-15 08:51] LABS: HEMATOCRIT 42.3 % (35.4-49); HEMOGLOBIN 13.5 GM/dL (11.7-16.9); MCH 29.2 pg (25.7-33.7); MCHC 31.8 g/dl (32.0-35.9); MEAN CELL VOLUME 91.7 fl (80-96); MEAN PLT VOLUME 8.2 fl (7.5-11.1); PLATELET COUNT 287 10^3/uL (134-434); RBC 4.62 M/mm3 (4.00-5.60); RDW 13.8 % (11.9-15.9); WHITE BLOOD COUNT 4.4 K/mm3 (4.0-10.0)
[2022-03-15 08:57] LABS: ALBUMIN 3.2 g/dl (3.4-5.0); CALCIUM 9.1 mg/dL (8.5-10.1)
[2022-03-15 09:00] LABS: CREATININE 1.2 mg/dL (0.55-1.3)
[2022-03-15] MEDS ORDERED: methaDONE 40 MG, methaDONE 10 MG PO ONE (09:00)
[2022-03-15 09:02] LABS: BILIRUBIN,TOTAL 0.5 mg/dL (0.2-1); TOT PROT 6.5 g/dl (6.4-8.2)
[2022-03-15] MEDS ORDERED: methaDONE HCL 10 MG TABLET PO ONE (10:00)
[2022-03-15] MEDS: METHYL SALICYLATE/MENTHOL OINT 30 GM TUBE TP SCH ×2 (10:04→23:33)
[2022-03-15] MEDS: PRENATAL VITAMINS W/ FOLIC ACID TABLET (FP) PO SCH (10:05)
[2022-03-15] MEDS: NICOTINE 21 MG/24 HOURS TOPICAL PATCH TD SCH (10:07)
[2022-03-15] MEDS: ARIPiprazole 5 MG TABLET PO SCH (10:50)
[2022-03-15] MEDS: THIAMINE HCL 100 MG TABLET (FP) PO SCH (22:18)
[2022-03-15] MEDS: MELATONIN 5 MG TABLETS PO SCH (22:18)
[2022-03-16] MEDS: LORazepam 1 MG TABLET PO SCH ×4 (05:30→22:38)
[2022-03-16] MEDS ORDERED: methaDONE HCL 10 MG TABLET PO ONE (09:29)
[2022-03-16] MEDS ORDERED: methaDONE 40 MG, methaDONE 10 MG PO ONE (10:00)
[2022-03-16] MEDS: PRENATAL VITAMINS W/ FOLIC ACID TABLET (FP) PO SCH (10:17)
[2022-03-16] MEDS: ARIPiprazole 5 MG TABLET PO SCH (10:17)
[2022-03-16] MEDS: METHYL SALICYLATE/MENTHOL OINT 30 GM TUBE TP SCH ×2 (10:18→22:38)
[2022-03-16] MEDS: NICOTINE 21 MG/24 HOURS TOPICAL PATCH TD SCH (10:18)
[2022-03-16] MEDS: LACTULOSE 20 GM/30 ML UDC (FOR ORAL USE ONLY) PO SCH ×4 (10:18→22:38)
[2022-03-16] MEDS: hydrOXYzine PAMOATE 25 MG CAPSULE (FP) PO PRN (12:43)
[2022-03-16] MEDS: MELATONIN 5 MG TABLETS PO SCH (22:34)
[2022-03-16] MEDS: THIAMINE HCL 100 MG TABLET (FP) PO SCH (22:34)
[2022-03-17] MEDS ORDERED: LORazepam 0.5 MG TABLET PO PRN
[2022-03-17] MEDS: LORazepam 0.5 MG TABLET PO SCH ×4 (05:43→22:50)
[2022-03-17] MEDS ORDERED: methaDONE HCL 10 MG TABLET PO ONE (09:00)
[2022-03-17] MEDS ORDERED: methaDONE 40 MG, methaDONE 10 MG PO ONE (10:00)
[2022-03-17] MEDS ORDERED: amLODIPine BESYLATE 10 MG TABLET (FP) PO SCH (10:00)
[2022-03-17] MEDS: LACTULOSE 20 GM/30 ML UDC (FOR ORAL USE ONLY) PO SCH ×4 (10:01→23:11)
[2022-03-17] MEDS: PRENATAL VITAMINS W/ FOLIC ACID TABLET (FP) PO SCH (10:02)
[2022-03-17] MEDS: ARIPiprazole 5 MG TABLET PO SCH (10:04)
[2022-03-17] MEDS: NICOTINE 21 MG/24 HOURS TOPICAL PATCH TD SCH (10:05)
[2022-03-17] MEDS: METHYL SALICYLATE/MENTHOL OINT 30 GM TUBE TP SCH ×2 (10:05→23:11)
[2022-03-17] MEDS: THIAMINE HCL 100 MG TABLET (FP) PO SCH (22:50)
[2022-03-17] MEDS: MELATONIN 5 MG TABLETS PO SCH (22:50)
[2022-03-18] MEDS ORDERED: LORazepam 0.5 MG TABLET PO ONE (05:00)
[2022-03-18] MEDS ORDERED: methaDONE 40 MG, methaDONE 10 MG PO SCH (06:00)
[2022-03-18] MEDS ORDERED: methaDONE HCL 10 MG TABLET PO SCH (06:00)
[2022-03-18 06:06] VITALS: TEMP 97.7
[2022-03-18 09:40] VITALS: BP 146/73; PULSE 83; RESP 18
== END 2022-03-18 09:53 | disposition home or self-care (01) | DRG 773 ==
LOC: YASAS 09:50 → Y6N 11:52
PROVIDERS: ADMIT Allergy & Immunology; ATTEND Surgery
PROC: HZ2ZZZZ Detoxification Services for Substance Abuse Treatment (ICD-10-PCS; principal; 2022-03-14)
DX: F10.230 Alcohol dependence with withdrawal, uncomplicated (principal); F11.23 Opioid dependence with withdrawal; F14.20 Cocaine dependence, uncomplicated; F17.210 Nicotine dependence, cigarettes, uncomplicated; F25.9 Schizoaffective disorder, unspecified; F19.24 Other psychoactive substance dependence with psychoactive substance-induced mood disorder; I10 Essential (primary) hypertension; R79.89 Other specified abnormal findings of blood chemistry; M17.0 Bilateral primary osteoarthritis of knee; M47.819 Spondylosis without myelopathy or radiculopathy, site unspecified; M25.661 Stiffness of right knee, not elsewhere classified; Z86.19 Personal history of other infectious and parasitic diseases; Z90.5 Acquired absence of kidney; Z99.89 Dependence on other enabling machines and devices
CPT/HCPCS: 36415; 80053; 82140; 83036; 85027; 86780; 87811; C9803-CS; U0003; U0005

== ENCOUNTER 2022-04-22 09:29 | Inpatient (IN) | payer OTHER ==
[2022-04-22 10:14] VITALS: BMI 25.8
[2022-04-22] MEDS ORDERED: NICOTINE 10 MG CARTRIDGE (INHALER) IH PRN (12:19)
[2022-04-22] MEDS ORDERED: LORazepam 1 MG TABLET PO PRN (12:19)
[2022-04-22] MEDS ORDERED: POLYETHYLENE GLYCOL (HEALTHYLAX) 3350 17 GM PACKET PO PRN (12:19)
[2022-04-22] MEDS ORDERED: MAG HYDROX/AL HYDROX/SIMETH 30 ML UNIT-DOSE CUP PO PRN (12:19)
[2022-04-22] MEDS ORDERED: LOPERAMIDE HCL 2 MG CAPSULE PO PRN (12:19)
[2022-04-22] MEDS ORDERED: hydrOXYzine PAMOATE 25 MG CAPSULE (FP) PO PRN (12:19)
[2022-04-22] MEDS ORDERED: ACETAMINOPHEN 325 MG TABLET (FP) PO PRN ×2 (12:19)
[2022-04-22] MEDS ORDERED: NALOXONE HCL (KLOXXADO) 8 MG SPRAY NS PRN (12:19)
[2022-04-22] MEDS ORDERED: DICYCLOMINE HCL 10 MG CAPSULE PO PRN (12:19)
[2022-04-22] MEDS ORDERED: ONDANSETRON *ODT* 4 MG TABLET SL PRN (12:19)
[2022-04-22] MEDS ORDERED: MAGNESIUM HYDROX 2400MG/30ML ORAL SUSPENSION 30 ML CUP PO PRN (12:19)
[2022-04-22] MEDS ORDERED: IBUPROFEN 400 MG TABLET (FP) PO PRN (12:19)
[2022-04-22] MEDS ORDERED: BENZOCAINE/MENTHOL (CHLORASEPTIC ) LOZENGE MM PRN (12:19)
[2022-04-22] MEDS ORDERED: BISMUTH SUBSALICYLATE 524 MG/30 ML PO PRN (12:19)
[2022-04-22] MEDS ORDERED: IBUPROFEN 600 MG TABLET (FP) PO PRN (12:19)
[2022-04-22] MEDS ORDERED: METHOCARBAMOL 500 MG TABLET PO PRN (12:19)
[2022-04-22] MEDS: PRENATAL VITAMINS W/ FOLIC ACID TABLET (FP) PO SCH (13:36)
[2022-04-22] MEDS: NICOTINE 14 MG/24 HOURS TOPICAL PATCH TD SCH (13:36)
[2022-04-22] MEDS ORDERED: methaDONE HCL 10 MG TABLET PO SCH (15:00)
[2022-04-22] MEDS: methaDONE 40 MG, methaDONE 10 MG PO SCH (15:07)
[2022-04-22] MEDS: LORazepam 2 MG TABLET PO SCH ×2 (17:17→22:47)
[2022-04-22] MEDS: amLODIPine BESYLATE 10 MG TABLET (FP) PO SCH (20:14)
[2022-04-22] MEDS: MELATONIN 5 MG TABLETS PO SCH (22:46)
[2022-04-22] MEDS: THIAMINE HCL 100 MG TABLET (FP) PO SCH (22:47)
[2022-04-23] MEDS: LORazepam 2 MG TABLET PO SCH ×4 (05:35→22:50)
[2022-04-23] MEDS: methaDONE 40 MG, methaDONE 10 MG PO SCH (05:35)
[2022-04-23] MEDS: amLODIPine BESYLATE 10 MG TABLET (FP) PO SCH (10:09)
[2022-04-23] MEDS: PRENATAL VITAMINS W/ FOLIC ACID TABLET (FP) PO SCH (10:09)
[2022-04-23] MEDS: NICOTINE 14 MG/24 HOURS TOPICAL PATCH TD SCH (10:31)
[2022-04-23 13:48] LABS: HEMATOCRIT 42.7 % (35.4-49); HEMOGLOBIN 14.4 GM/dL (11.7-16.9); MCH 30.5 pg (25.7-33.7); MCHC 33.7 g/dl (32.0-35.9); MEAN CELL VOLUME 90.7 fl (80-96); MEAN PLT VOLUME 8.6 fl (7.5-11.1); PLATELET COUNT 314 10^3/uL (134-434); RBC 4.71 M/mm3 (4.00-5.60); RDW 14.2 % (11.9-15.9); WHITE BLOOD COUNT 5.3 K/mm3 (4.0-10.0)
[2022-04-23 14:18] LABS: BLOOD UREA NITROGEN 24.5 mg/dL (7-18); CALCIUM 9.9 mg/dL (8.5-10.1)
[2022-04-23 14:19] LABS: ALBUMIN 3.8 g/dl (3.4-5.0)
[2022-04-23 14:22] LABS: CREATININE 1.2 mg/dL (0.55-1.3)
[2022-04-23 14:23] LABS: BILIRUBIN,TOTAL 0.5 mg/dL (0.2-1); TOT PROT 7.3 g/dl (6.4-8.2)
[2022-04-23] MEDS: THIAMINE HCL 100 MG TABLET (FP) PO SCH (22:50)
[2022-04-23] MEDS: MELATONIN 5 MG TABLETS PO SCH (22:50)
[2022-04-24] MEDS: LORazepam 1 MG TABLET PO SCH ×2 (05:47→10:05)
[2022-04-24] MEDS: methaDONE 40 MG, methaDONE 10 MG PO SCH (05:47)
[2022-04-24] MEDS: PRENATAL VITAMINS W/ FOLIC ACID TABLET (FP) PO SCH (10:04)
[2022-04-24] MEDS: amLODIPine BESYLATE 10 MG TABLET (FP) PO SCH (10:04)
[2022-04-24] MEDS: NICOTINE 14 MG/24 HOURS TOPICAL PATCH TD SCH (10:05)
[2022-04-24 10:55] VITALS: RESP 16; TEMP 97
[2022-04-24 13:53] VITALS: BP 127/74; PULSE 70
[2022-04-25] MEDS ORDERED: LORazepam 0.5 MG TABLET PO PRN
[2022-04-25] MEDS ORDERED: LORazepam 0.5 MG TABLET PO SCH (05:00)
[2022-04-26] MEDS ORDERED: LORazepam 0.5 MG TABLET PO ONE (05:00)
== END 2022-04-24 15:26 | disposition left against medical advice (07) | DRG 770 ==
LOC: YASAS 09:29 → Y3N 14:14
PROVIDERS: ADMIT Allergy & Immunology; ATTEND Surgery
PROC: HZ2ZZZZ Detoxification Services for Substance Abuse Treatment (ICD-10-PCS; principal; 2022-04-22)
DX: F10.230 Alcohol dependence with withdrawal, uncomplicated (principal); F11.20 Opioid dependence, uncomplicated; F14.20 Cocaine dependence, uncomplicated; F17.213 Nicotine dependence, cigarettes, with withdrawal; F20.9 Schizophrenia, unspecified; F41.9 Anxiety disorder, unspecified; F32.A Depression, unspecified; E72.20 Disorder of urea cycle metabolism, unspecified; I10 Essential (primary) hypertension; M47.9 Spondylosis, unspecified; M54.50 Low back pain, unspecified; R79.89 Other specified abnormal findings of blood chemistry; Z99.89 Dependence on other enabling machines and devices
CPT/HCPCS: 36415; 80053; 82140; 85027; 86780; 87811; C9803-CS; U0003; U0005

== ENCOUNTER 2022-05-16 11:29 | Inpatient (IN) | payer OTHER ==
[2022-05-16 12:08] VITALS: BMI 26.4
[2022-05-16] MEDS ORDERED: BACLOFEN 10 MG TABLET (FP) PO PRN (12:34)
[2022-05-16] MEDS ORDERED: IBUPROFEN 600 MG TABLET (FP) PO PRN (12:34)
[2022-05-16] MEDS ORDERED: hydrOXYzine PAMOATE 25 MG CAPSULE (FP) PO PRN (12:34)
[2022-05-16] MEDS ORDERED: NICOTINE 10 MG CARTRIDGE (INHALER) IH PRN (12:34)
[2022-05-16] MEDS ORDERED: IBUPROFEN 400 MG TABLET (FP) PO PRN (12:34)
[2022-05-16] MEDS ORDERED: LORazepam 1 MG TABLET PO PRN (12:34)
[2022-05-16] MEDS ORDERED: POLYETHYLENE GLYCOL (HEALTHYLAX) 3350 17 GM PACKET PO PRN (12:34)
[2022-05-16] MEDS ORDERED: LOPERAMIDE HCL 2 MG CAPSULE PO PRN (12:34)
[2022-05-16] MEDS ORDERED: BISMUTH SUBSALICYLATE 524 MG/30 ML PO PRN (12:34)
[2022-05-16] MEDS ORDERED: MAGNESIUM HYDROX 2400MG/30ML ORAL SUSPENSION 30 ML CUP PO PRN (12:34)
[2022-05-16] MEDS ORDERED: NALOXONE HCL (KLOXXADO) 8 MG SPRAY NS PRN (12:34)
[2022-05-16] MEDS ORDERED: ACETAMINOPHEN 325 MG TABLET (FP) PO PRN ×2 (12:34)
[2022-05-16] MEDS ORDERED: ONDANSETRON *ODT* 4 MG TABLET SL PRN (12:34)
[2022-05-16] MEDS ORDERED: DICYCLOMINE HCL 10 MG CAPSULE PO PRN (12:34)
[2022-05-16] MEDS ORDERED: BENZOCAINE/MENTHOL (CHLORASEPTIC ) LOZENGE MM PRN (12:34)
[2022-05-16] MEDS ORDERED: MAG HYDROX/AL HYDROX/SIMETH 30 ML UNIT-DOSE CUP PO PRN (12:34)
[2022-05-16] MEDS: amLODIPine BESYLATE 10 MG TABLET (FP) PO SCH (14:18)
[2022-05-16] MEDS: LORazepam 2 MG TABLET PO SCH ×2 (17:31→22:23)
[2022-05-16] MEDS: MELATONIN 5 MG TABLETS PO SCH (22:23)
[2022-05-16] MEDS: THIAMINE HCL 100 MG TABLET (FP) PO SCH (22:23)
[2022-05-17] MEDS: LORazepam 2 MG TABLET PO SCH ×2 (05:19→10:03)
[2022-05-17] MEDS: methaDONE 40 MG, methaDONE 10 MG PO SCH (05:20)
[2022-05-17] MEDS ORDERED: methaDONE HCL 10 MG TABLET PO SCH (06:00)
[2022-05-17] MEDS: NICOTINE 7 MG/24 HOURS TOPICAL PATCH TD SCH (10:02)
[2022-05-17] MEDS: amLODIPine BESYLATE 10 MG TABLET (FP) PO SCH (10:03)
[2022-05-17] MEDS: PRENATAL VITAMINS W/ FOLIC ACID TABLET (FP) PO SCH (10:03)
[2022-05-17 10:21] LABS: CALCIUM 9.1 mg/dL (8.5-10.1)
[2022-05-17 10:23] LABS: ALBUMIN 3.7 g/dl (3.4-5.0); BLOOD UREA NITROGEN 19.1 mg/dL (7-18); HEMATOCRIT 41.3 % (35.4-49); HEMOGLOBIN 13.3 GM/dL (11.7-16.9); MCHC 32.2 g/dl (32.0-35.9); MEAN PLT VOLUME 8.4 fl (7.5-11.1); PLATELET COUNT 245 10^3/uL (134-434); RBC 4.59 M/mm3 (4.00-5.60); RDW 14.3 % (11.9-15.9)
[2022-05-17 10:26] LABS: CREATININE 1.1 mg/dL (0.55-1.3)
[2022-05-17 10:28] LABS: BILIRUBIN,TOTAL 0.7 mg/dL (0.2-1)
[2022-05-17] MEDS ORDERED: LORazepam 2 MG TABLET PO SCH (17:00)
[2022-05-17] MEDS ORDERED: LORazepam 1 MG TABLET PO SCH (17:15)
[2022-05-17 21:49] VITALS: RESP 17
[2022-05-17] MEDS: THIAMINE HCL 100 MG TABLET (FP) PO SCH (22:35)
[2022-05-17] MEDS: MELATONIN 5 MG TABLETS PO SCH (22:35)
[2022-05-18] MEDS: LORazepam 1 MG TABLET PO SCH ×2 (05:30→10:48)
[2022-05-18] MEDS: methaDONE 40 MG, methaDONE 10 MG PO SCH (06:24)
[2022-05-18] MEDS ORDERED: methaDONE 40 MG, methaDONE 10 MG PO SCH (07:15)
[2022-05-18 10:30] VITALS: BP 126/77; PULSE 72; TEMP 97.4
[2022-05-18] MEDS: amLODIPine BESYLATE 10 MG TABLET (FP) PO SCH (10:30)
[2022-05-18] MEDS: NICOTINE 7 MG/24 HOURS TOPICAL PATCH TD SCH (10:30)
[2022-05-18] MEDS: PRENATAL VITAMINS W/ FOLIC ACID TABLET (FP) PO SCH (10:30)
[2022-05-19] MEDS ORDERED: LORazepam 0.5 MG TABLET PO PRN
[2022-05-19] MEDS ORDERED: LORazepam 0.5 MG TABLET PO SCH (05:00)
[2022-05-20] MEDS ORDERED: LORazepam 0.5 MG TABLET PO ONE (05:00)
== END 2022-05-18 10:40 | disposition left against medical advice (07) | DRG 770 ==
LOC: YASAS 11:29 → Y6N 13:01
PROVIDERS: ADMIT Allergy & Immunology; ATTEND Surgery
PROC: HZ2ZZZZ Detoxification Services for Substance Abuse Treatment (ICD-10-PCS; principal; 2022-05-16)
DX: F10.230 Alcohol dependence with withdrawal, uncomplicated (principal); F11.20 Opioid dependence, uncomplicated; F14.20 Cocaine dependence, uncomplicated; F17.210 Nicotine dependence, cigarettes, uncomplicated; F20.9 Schizophrenia, unspecified; I10 Essential (primary) hypertension; M47.9 Spondylosis, unspecified; M54.50 Low back pain, unspecified; G89.29 Other chronic pain; Z90.5 Acquired absence of kidney; Z99.89 Dependence on other enabling machines and devices; Z59.02 Unsheltered homelessness
CPT/HCPCS: 36415; 80053; 85027; 86780; 87811; C9803-CS; U0003; U0005

== ENCOUNTER 2023-02-26 09:46 | Inpatient (IN) | payer OTHER ==
[2023-02-26 10:14] VITALS: BMI 26.4
[2023-02-26] MEDS ORDERED: POLYETHYLENE GLYCOL (HEALTHYLAX) 3350 17 GM PACKET PO PRN (10:26)
[2023-02-26] MEDS ORDERED: ONDANSETRON *ODT* 4 MG TABLET SL PRN (10:26)
[2023-02-26] MEDS ORDERED: NALOXONE HCL (KLOXXADO) 8 MG SPRAY NS PRN (10:26)
[2023-02-26] MEDS ORDERED: BISMUTH SUBSALICYLATE 524 MG/30 ML PO PRN (10:26)
[2023-02-26] MEDS ORDERED: ACETAMINOPHEN 325 MG TABLET (FP) PO PRN (10:26)
[2023-02-26] MEDS ORDERED: BENZONATATE 200 MG CAPSULE PO PRN (10:26)
[2023-02-26] MEDS ORDERED: MAG HYDROX/AL HYDROX/SIMETH 30 ML UNIT-DOSE CUP PO PRN (10:26)
[2023-02-26] MEDS ORDERED: LOPERAMIDE HCL 2 MG CAPSULE PO PRN (10:26)
[2023-02-26] MEDS ORDERED: NALOXONE HCL 0.4 MG/ML VIAL IM PRN (10:26)
[2023-02-26] MEDS ORDERED: guaiFENesin 600 MG TABLET.ER (FP) PO PRN (10:26)
[2023-02-26] MEDS ORDERED: DICYCLOMINE HCL 10 MG CAPSULE PO PRN (10:26)
[2023-02-26] MEDS ORDERED: LORazepam 1 MG TABLET PO PRN (10:26)
[2023-02-26] MEDS ORDERED: IBUPROFEN 400 MG TABLET (FP) PO PRN (10:26)
[2023-02-26] MEDS ORDERED: BENZOCAINE/MENTHOL (CHLORASEPTIC ) LOZENGE MM PRN (10:26)
[2023-02-26] MEDS ORDERED: MAGNESIUM HYDROX 2400MG/30ML ORAL SUSPENSION 30 ML CUP PO PRN (10:26)
[2023-02-26] MEDS ORDERED: hydrOXYzine PAMOATE 25 MG CAPSULE (FP) PO PRN (10:26)
[2023-02-26] MEDS ORDERED: IBUPROFEN 600 MG TABLET (FP) PO PRN (10:26)
[2023-02-26] MEDS ORDERED: LORazepam 2 MG TABLET ONE (11:13)
[2023-02-26] MEDS ORDERED: NICOTINE 14 MG/24 HOURS TOPICAL PATCH TD ONE (11:13)
[2023-02-26] MEDS ORDERED: PRENATAL VITAMINS W/ FOLIC ACID TABLET (FP) PO ONE (11:13)
[2023-02-26] MEDS: NICOTINE 14 MG/24 HOURS TOPICAL PATCH TD SCH (11:19)
[2023-02-26] MEDS: PRENATAL VITAMINS W/ FOLIC ACID TABLET (FP) PO SCH (11:19)
[2023-02-26] MEDS: LORazepam 2 MG TABLET PO SCH ×3 (11:19→22:35)
[2023-02-26] MEDS: METHOCARBAMOL 500 MG TABLET PO PRN (16:32)
[2023-02-26] MEDS: MELATONIN 5 MG TABLETS PO SCH (22:36)
[2023-02-26] MEDS: THIAMINE HCL 100 MG TABLET (FP) PO SCH (22:36)
[2023-02-27] MEDS: LORazepam 2 MG TABLET PO SCH ×4 (05:31→22:30)
[2023-02-27] MEDS: PRENATAL VITAMINS W/ FOLIC ACID TABLET (FP) PO SCH (10:20)
[2023-02-27] MEDS: amLODIPine BESYLATE 10 MG TABLET (FP) PO SCH (10:21)
[2023-02-27] MEDS: NICOTINE 14 MG/24 HOURS TOPICAL PATCH TD SCH (10:21)
[2023-02-27] MEDS ORDERED: methaDONE HCL 10 MG TABLET PO SCH (11:30)
[2023-02-27] MEDS: methaDONE 40 MG, methaDONE 10 MG PO SCH (11:42)
[2023-02-27 12:47] LABS: POTASSIUM 4.1 mmol/L (3.5-5.1)
[2023-02-27 12:51] LABS: CALCIUM 9.4 mg/dL (8.5-10.1)
[2023-02-27 12:52] LABS: ALBUMIN 3.5 g/dl (3.4-5.0); BLOOD UREA NITROGEN 17.9 mg/dL (7-18)
[2023-02-27 12:55] LABS: CREATININE 1.2 mg/dL (0.55-1.3)
[2023-02-27 12:56] LABS: BILIRUBIN,TOTAL 0.5 mg/dL (0.2-1)
[2023-02-27 12:59] LABS: HEMATOCRIT 41.7 % (35.4-49); HEMOGLOBIN 13.6 GM/dL (11.7-16.9); MCH 29.2 pg (25.7-33.7); MCHC 32.6 g/dl (32.0-35.9); MEAN CELL VOLUME 89.6 fl (80-96); MEAN PLT VOLUME 8.5 fl (7.5-11.1); PLATELET COUNT 283 10^3/uL (134-434); RBC 4.65 M/mm3 (4.00-5.60); RDW 13.4 % (11.9-15.9); WHITE BLOOD COUNT 2.9 K/mm3 (4.0-10.0)
[2023-02-27] MEDS: THIAMINE HCL 100 MG TABLET (FP) PO SCH (22:30)
[2023-02-27] MEDS: MELATONIN 5 MG TABLETS PO SCH (22:30)
[2023-02-28] MEDS: LORazepam 1 MG TABLET PO SCH ×4 (05:48→22:01)
[2023-02-28] MEDS: methaDONE 40 MG, methaDONE 10 MG PO SCH (05:48)
[2023-02-28] MEDS ORDERED: BACITRACIN 0.9 GM PACKET TP SCH (10:00)
[2023-02-28] MEDS: amLODIPine BESYLATE 10 MG TABLET (FP) PO SCH (10:13)
[2023-02-28] MEDS: PRENATAL VITAMINS W/ FOLIC ACID TABLET (FP) PO SCH (10:13)
[2023-02-28] MEDS: NICOTINE 14 MG/24 HOURS TOPICAL PATCH TD SCH (10:14)
[2023-02-28] MEDS: METHOCARBAMOL 500 MG TABLET PO PRN (22:00)
[2023-02-28] MEDS: MELATONIN 5 MG TABLETS PO SCH (22:00)
[2023-02-28] MEDS: THIAMINE HCL 100 MG TABLET (FP) PO SCH (22:00)
[2023-03-01] MEDS ORDERED: LORazepam 0.5 MG TABLET PO PRN
[2023-03-01] MEDS ORDERED: LORazepam 0.5 MG TABLET PO SCH (05:00)
[2023-03-01] MEDS: methaDONE 40 MG, methaDONE 10 MG PO SCH (05:45)
[2023-03-01 08:58] VITALS: BP 110/72; PULSE 80; RESP 17; TEMP 98
[2023-03-02] MEDS ORDERED: LORazepam 0.5 MG TABLET PO ONE (05:00)
== END 2023-03-01 09:06 | disposition home or self-care (01) | DRG 773 ==
LOC: YASAS 09:46 → Y3N 10:53
PROVIDERS: ADMIT Allergy & Immunology; ATTEND Surgery
PROC: HZ2ZZZZ Detoxification Services for Substance Abuse Treatment (ICD-10-PCS; principal; 2023-02-26)
DX: F10.230 Alcohol dependence with withdrawal, uncomplicated (principal); F11.20 Opioid dependence, uncomplicated; F13.20 Sedative, hypnotic or anxiolytic dependence, uncomplicated; F14.20 Cocaine dependence, uncomplicated; F17.210 Nicotine dependence, cigarettes, uncomplicated; F19.24 Other psychoactive substance dependence with psychoactive substance-induced mood disorder; F20.9 Schizophrenia, unspecified; I10 Essential (primary) hypertension; L98.8 Other specified disorders of the skin and subcutaneous tissue; M47.9 Spondylosis, unspecified; R79.89 Other specified abnormal findings of blood chemistry; Z99.89 Dependence on other enabling machines and devices
CPT/HCPCS: 36415; 80053; 80307; 82140; 85027; 86780; 87635; 87811

== ENCOUNTER 2023-06-24 11:31 | Inpatient (IN) | payer OTHER ==
[2023-06-24 11:53] VITALS: BMI 23.7
[2023-06-24] MEDS ORDERED: NALOXONE HCL 0.4 MG/ML VIAL IM PRN (13:52)
[2023-06-24] MEDS ORDERED: NALOXONE HCL (KLOXXADO) 8 MG SPRAY NS PRN (13:52)
[2023-06-24] MEDS ORDERED: IBUPROFEN 600 MG TABLET (FP) PO PRN (13:52)
[2023-06-24] MEDS ORDERED: NICOTINE POLACRILEX 2 MG GUM BUC PRN (13:52)
[2023-06-24] MEDS ORDERED: LOPERAMIDE HCL 2 MG CAPSULE PO PRN (13:52)
[2023-06-24] MEDS ORDERED: MAG HYDROX/AL HYDROX/SIMETH 30 ML UNIT-DOSE CUP PO PRN (13:52)
[2023-06-24] MEDS ORDERED: BENZONATATE 200 MG CAPSULE PO PRN (13:52)
[2023-06-24] MEDS ORDERED: guaiFENesin 600 MG TABLET.ER (FP) PO PRN (13:52)
[2023-06-24] MEDS ORDERED: IBUPROFEN 400 MG TABLET (FP) PO PRN (13:52)
[2023-06-24] MEDS ORDERED: BISMUTH SUBSALICYLATE 524 MG/30 ML PO PRN (13:52)
[2023-06-24] MEDS ORDERED: MAGNESIUM HYDROX 2400MG/30ML ORAL SUSPENSION 30 ML CUP PO PRN (13:52)
[2023-06-24] MEDS ORDERED: POLYETHYLENE GLYCOL (HEALTHYLAX) 3350 17 GM PACKET PO PRN (13:52)
[2023-06-24] MEDS: ONDANSETRON *ODT* 4 MG TABLET SL PRN (16:02)
[2023-06-24] MEDS: BENZOCAINE/MENTHOL (CHLORASEPTIC ) LOZENGE MM PRN (16:03)
[2023-06-24] MEDS: ACETAMINOPHEN 325 MG TABLET (FP) PO PRN (18:32)
[2023-06-24] MEDS: P-EPHED 60MG/TRIPROLIDI 2.5MG TABLET PO PRN (19:49)
[2023-06-24] MEDS: THIAMINE HCL 100 MG TABLET (FP) PO SCH (22:37)
[2023-06-24] MEDS: MELATONIN 5 MG TABLETS PO SCH (22:37)
[2023-06-25] MEDS ORDERED: chlordiazePOXIDE HCL 25 MG CAPSULE PO PRN (08:51)
[2023-06-25] MEDS ORDERED: methaDONE HCL 10 MG TABLET PO SCH (09:00)
[2023-06-25] MEDS: amLODIPine BESYLATE 10 MG TABLET (FP) PO SCH (09:19)
[2023-06-25] MEDS: PRENATAL VITAMINS W/ FOLIC ACID TABLET (FP) PO SCH (09:19)
[2023-06-25] MEDS: methaDONE 40 MG, methaDONE 10 MG PO SCH (09:20)
[2023-06-25] MEDS: NICOTINE 14 MG/24 HOURS TOPICAL PATCH TD SCH (09:22)
[2023-06-25] MEDS: chlordiazePOXIDE HCL 25 MG CAPSULE PO SCH (10:13)
[2023-06-25 11:27] LABS: HEMATOCRIT 41.8 % (35.4-49); MCH 29.5 pg (25.7-33.7); MCHC 33.5 g/dl (32.0-35.9); MEAN CELL VOLUME 88.3 fl (80-96); PLATELET COUNT 264 10^3/uL (134-434); RBC 4.74 M/mm3 (4.00-5.60); WHITE BLOOD COUNT 4.5 K/mm3 (4.0-10.0)
[2023-06-25 11:47] LABS: POTASSIUM 4.4 mmol/L (3.5-5.1)
[2023-06-25 11:54] LABS: CALCIUM 9.5 mg/dL (8.5-10.1)
[2023-06-25 11:55] LABS: BLOOD UREA NITROGEN 18.8 mg/dL (7-18)
[2023-06-25 11:56] LABS: ALBUMIN 3.8 g/dl (3.4-5.0)
[2023-06-25 11:57] LABS: CREATININE 1.3 mg/dL (0.55-1.3)
[2023-06-25 11:59] LABS: BILIRUBIN,TOTAL 0.4 mg/dL (0.2-1); TOT PROT 8.2 g/dl (6.4-8.2)
[2023-06-25] MEDS: SERTRALINE HCL 50 MG TABLET (FP) PO SCH (12:21)
[2023-06-25] MEDS: ARIPiprazole 5 MG TABLET PO SCH (12:21)
[2023-06-25] MEDS ORDERED: SUVOREXANT 10 MG TABLET PO PRN (22:00)
[2023-06-27] MEDS: chlordiazePOXIDE HCL 25 MG CAPSULE PO SCH (05:36)
[2023-06-27 06:48] VITALS: RESP 18
[2023-06-27 09:57] VITALS: BP 135/94; PULSE 74; TEMP 98.6
[2023-06-28] MEDS ORDERED: chlordiazePOXIDE HCL 10 MG CAPSULE PO PRN
[2023-06-28] MEDS ORDERED: chlordiazePOXIDE HCL 10 MG CAPSULE PO SCH (05:00)
[2023-06-29] MEDS ORDERED: chlordiazePOXIDE HCL 10 MG CAPSULE PO SCH (05:00)
[2023-06-30] MEDS ORDERED: chlordiazePOXIDE HCL 10 MG CAPSULE PO ONE (05:00)
== END 2023-06-27 12:20 | disposition left against medical advice (07) | DRG 770 ==
LOC: YASAS 11:31 → Y6N 14:37
PROVIDERS: ADMIT Allergy & Immunology; ATTEND Surgery
PROC: HZ2ZZZZ Detoxification Services for Substance Abuse Treatment (ICD-10-PCS; principal; 2023-06-24)
DX: F10.230 Alcohol dependence with withdrawal, uncomplicated (principal); F11.20 Opioid dependence, uncomplicated; F25.1 Schizoaffective disorder, depressive type; F19.282 Other psychoactive substance dependence with psychoactive substance-induced sleep disorder; F19.24 Other psychoactive substance dependence with psychoactive substance-induced mood disorder; I10 Essential (primary) hypertension; K70.30 Alcoholic cirrhosis of liver without ascites; M47.9 Spondylosis, unspecified; M54.50 Low back pain, unspecified; Z86.19 Personal history of other infectious and parasitic diseases; Z91.410 Personal history of adult physical and sexual abuse; Z63.0 Problems in relationship with spouse or partner; Z99.89 Dependence on other enabling machines and devices
CPT/HCPCS: 36415; 80053; 80307; 85027; 86780; 93005; 93010; Q0162

== ENCOUNTER 2023-11-04 22:59 | Inpatient (IN) | payer OTHER ==
[2023-11-04 23:38] VITALS: BMI 27.1
[2023-11-05] MEDS ORDERED: MAG HYDROX/AL HYDROX/SIMETH 30 ML UNIT-DOSE CUP PO PRN (00:57)
[2023-11-05] MEDS ORDERED: NALOXONE (NARCAN) HCL 4 MG/0.1 ML SPRAY NS PRN (00:57)
[2023-11-05] MEDS ORDERED: IBUPROFEN 600 MG TABLET (FP) PO PRN (00:57)
[2023-11-05] MEDS ORDERED: ACETAMINOPHEN 325 MG TABLET (FP) PO PRN (00:57)
[2023-11-05] MEDS ORDERED: hydrOXYzine PAMOATE 25 MG CAPSULE (FP) PO PRN (00:57)
[2023-11-05] MEDS ORDERED: BENZOCAINE/MENTHOL (CHLORASEPTIC ) LOZENGE MM PRN (00:57)
[2023-11-05] MEDS ORDERED: POLYETHYLENE GLYCOL (HEALTHYLAX) 3350 17 GM PACKET PO PRN (00:57)
[2023-11-05] MEDS ORDERED: MAGNESIUM HYDROX 2400MG/30ML ORAL SUSPENSION 30 ML CUP PO PRN (00:57)
[2023-11-05] MEDS ORDERED: IBUPROFEN 400 MG TABLET (FP) PO PRN (00:57)
[2023-11-05] MEDS ORDERED: NALOXONE HCL 0.4 MG/ML VIAL IM PRN (00:57)
[2023-11-05] MEDS ORDERED: LOPERAMIDE HCL 2 MG CAPSULE PO PRN (00:57)
[2023-11-05] MEDS ORDERED: guaiFENesin 600 MG TABLET.ER (FP) PO PRN (00:57)
[2023-11-05] MEDS ORDERED: BENZONATATE 200 MG CAPSULE PO PRN (00:57)
[2023-11-05] MEDS ORDERED: methaDONE HCL 10 MG TABLET PO SCH (09:15)
[2023-11-05] MEDS: methaDONE 40 MG, methaDONE 10 MG PO SCH (09:50)
[2023-11-05] MEDS: SERTRALINE HCL 50 MG TABLET (FP) PO SCH (09:51)
[2023-11-05] MEDS: ARIPiprazole 5 MG TABLET PO SCH (09:51)
[2023-11-05] MEDS: amLODIPine BESYLATE 10 MG TABLET (FP) PO SCH (09:51)
[2023-11-05] MEDS: PRENATAL VITAMINS W/ FOLIC ACID TABLET (FP) PO SCH (09:51)
[2023-11-05 11:13] LABS: BASO % 1.2 % (0-2.0); EOS % 2.9 % (0-4.5); HEMATOCRIT 41.1 % (35.4-49); HEMOGLOBIN 13.2 GM/dL (11.7-16.9); LYMPH % 41.5 % (8-40); MCH 29.9 pg (25.7-33.7); MCHC 32.2 g/dl (32.0-35.9); MEAN CELL VOLUME 92.9 fl (80-96); MEAN PLT VOLUME 8.6 fl (7.5-11.1); MONO % 9.8 % (3.8-10.2); NEUT % 44.6 % (42.8-82.8); PLATELET COUNT 275 10^3/uL (134-434); POTASSIUM 4.3 mmol/L (3.5-5.1); RBC 4.43 M/mm3 (4.00-5.60); RDW 14.7 % (11.9-15.9); WHITE BLOOD COUNT 5.7 K/mm3 (4.0-10.0)
[2023-11-05 11:20] LABS: BLOOD UREA NITROGEN 13.7 mg/dL (7-18); CALCIUM 9.1 mg/dL (8.5-10.1)
[2023-11-05 11:21] LABS: PH,URINE 5.5 (5.0-8.0); URINE APPEARANCE CLEAR; URINE BILIRUBIN NEGATIVE (NEGATIVE); URINE COLOR YELLOW; URINE GLUCOSE (UA) NEGATIVE (NEGATIVE); URINE KETONE NEGATIVE (NEGATIVE); URINE LEUK ESTERASE NEGATIVE (NEGATIVE); URINE NITRITE NEGATIVE (NEGATIVE); URINE PROTEIN NEGATIVE (NEGATIVE)
[2023-11-05 11:24] LABS: CREATININE 1.1 mg/dL (0.55-1.3)
[2023-11-05] MEDS: ONDANSETRON *ODT* 4 MG TABLET SL ONE (18:40)
[2023-11-05] MEDS: cloNIDine HCL 0.1 MG TABLET PO ONE (18:40)
[2023-11-05] MEDS: ASPIRIN COATED 81 MG TABLET.EC PO ONE (18:40)
[2023-11-05] MEDS: TRIMETHOBENZAMIDE HCL 200MG/2ML INJ IM ONE (19:19)
[2023-11-05] MEDS: hydrOXYzine PAMOATE 50 MG CAPSULE (FP) PO ONE (19:19)
[2023-11-05] MEDS ORDERED: NICOTINE POLACRILEX 2 MG GUM BUC PRN (21:17)
[2023-11-05] MEDS: THIAMINE 100 MG TABLET PO SCH (21:49)
[2023-11-05] MEDS: SUVOREXANT 10 MG TABLET PO PRN (21:49)
[2023-11-05] MEDS ORDERED: MELATONIN 5 MG TABLETS PO SCH (22:00)
[2023-11-06 06:28] VITALS: RESP 16
[2023-11-06 09:41] VITALS: BP 134/84; PULSE 78; TEMP 97.7
[2023-11-06] MEDS: diazePAM 5 MG TABLET PO ONE (10:06)
[2023-11-06 11:14] LABS: HEMATOCRIT 38.7 % (35.4-49); HEMOGLOBIN 12.8 GM/dL (11.7-16.9); MCH 30.1 pg (25.7-33.7); MEAN CELL VOLUME 91.3 fl (80-96); MEAN PLT VOLUME 8.7 fl (7.5-11.1); PLATELET COUNT 249 10^3/uL (134-434); RBC 4.24 M/mm3 (4.00-5.60); RDW 14.8 % (11.9-15.9)
[2023-11-06 11:16] LABS: ALBUMIN 3.2 g/dl (3.4-5.0); BLOOD UREA NITROGEN 10.4 mg/dL (7-18); CALCIUM 9.2 mg/dL (8.5-10.1)
[2023-11-06 11:21] LABS: BILIRUBIN,TOTAL 0.6 mg/dL (0.2-1); TOT PROT 6.5 g/dl (6.4-8.2)
== END 2023-11-06 12:44 | disposition home or self-care (01) | DRG 773 ==
LOC: YASAS 22:59 → Y3NR 11-05 01:35
PROVIDERS: ADMIT Allergy & Immunology; ATTEND Surgery
PROC: HZ2ZZZZ Detoxification Services for Substance Abuse Treatment (ICD-10-PCS; principal; 2023-11-05)
DX: F10.230 Alcohol dependence with withdrawal, uncomplicated (principal); F11.20 Opioid dependence, uncomplicated; F14.20 Cocaine dependence, uncomplicated; F17.210 Nicotine dependence, cigarettes, uncomplicated; F20.9 Schizophrenia, unspecified; F41.9 Anxiety disorder, unspecified; F32.A Depression, unspecified; I10 Essential (primary) hypertension; K70.30 Alcoholic cirrhosis of liver without ascites; B18.1 Chronic viral hepatitis B without delta-agent; M54.50 Low back pain, unspecified; G89.29 Other chronic pain; Z99.89 Dependence on other enabling machines and devices
CPT/HCPCS: 36415; 80048; 80053; 80305; 80307; 81003; 85025; 85027; 86780; 87811; 93005; 93010; Q0162

== ENCOUNTER 2023-11-06 12:49 | Inpatient (IN) | payer OTHER ==
[2023-11-06] MEDS ORDERED: diazePAM 5 MG TABLET PO PRN (14:17)
[2023-11-06] MEDS ORDERED: NALOXONE HCL 0.4 MG/ML VIAL IM PRN (14:17)
[2023-11-06] MEDS ORDERED: ACETAMINOPHEN 325 MG TABLET (FP) PO PRN (14:17)
[2023-11-06] MEDS ORDERED: IBUPROFEN 400 MG TABLET (FP) PO PRN (14:17)
[2023-11-06] MEDS ORDERED: POLYETHYLENE GLYCOL (HEALTHYLAX) 3350 17 GM PACKET PO PRN (14:17)
[2023-11-06] MEDS ORDERED: LOPERAMIDE HCL 2 MG CAPSULE PO PRN (14:17)
[2023-11-06] MEDS ORDERED: METHOCARBAMOL 500 MG TABLET PO PRN (14:17)
[2023-11-06] MEDS ORDERED: BISMUTH SUBSALICYLATE 524 MG/30 ML PO PRN (14:17)
[2023-11-06] MEDS ORDERED: MAG HYDROX/AL HYDROX/SIMETH 30 ML UNIT-DOSE CUP PO PRN (14:17)
[2023-11-06] MEDS ORDERED: BENZONATATE 200 MG CAPSULE PO PRN (14:17)
[2023-11-06] MEDS ORDERED: NALOXONE (NARCAN) HCL 4 MG/0.1 ML SPRAY NS PRN (14:17)
[2023-11-06] MEDS ORDERED: guaiFENesin 600 MG TABLET.ER (FP) PO PRN (14:17)
[2023-11-06] MEDS ORDERED: ONDANSETRON *ODT* 4 MG TABLET SL PRN (14:17)
[2023-11-06] MEDS ORDERED: BENZOCAINE/MENTHOL (CHLORASEPTIC ) LOZENGE MM PRN (14:17)
[2023-11-06] MEDS ORDERED: DICYCLOMINE HCL 10 MG CAPSULE PO PRN (14:17)
[2023-11-06] MEDS ORDERED: IBUPROFEN 600 MG TABLET (FP) PO PRN (14:17)
[2023-11-06] MEDS ORDERED: MAGNESIUM HYDROX 2400MG/30ML ORAL SUSPENSION 30 ML CUP PO PRN (14:17)
[2023-11-06] MEDS: diazePAM 5 MG TABLET PO SCH (17:25)
[2023-11-06] MEDS ORDERED: NICOTINE POLACRILEX 2 MG GUM BUC PRN (18:08)
[2023-11-06] MEDS: NICOTINE POLACRILEX 2 MG GUM BUC PRN (18:38)
[2023-11-06] MEDS: hydrOXYzine PAMOATE 25 MG CAPSULE (FP) PO PRN (21:59)
[2023-11-06] MEDS: THIAMINE 100 MG TABLET PO SCH (21:59)
[2023-11-06] MEDS ORDERED: SUVOREXANT 10 MG TABLET PO PRN (22:00)
[2023-11-06] MEDS: MELATONIN 5 MG TABLETS PO SCH (22:00)
[2023-11-07] MEDS: methaDONE HCL 10 MG TABLET PO SCH (05:14)
[2023-11-07 06:31] VITALS: BP 110/71; PULSE 64; RESP 16; TEMP 97.8
[2023-11-07] MEDS: PRENATAL VITAMINS W/ FOLIC ACID TABLET (FP) PO SCH (09:34)
[2023-11-07] MEDS: ARIPiprazole 5 MG TABLET PO SCH (09:34)
[2023-11-07] MEDS: SERTRALINE HCL 50 MG TABLET (FP) PO SCH (09:34)
[2023-11-07] MEDS: amLODIPine BESYLATE 10 MG TABLET (FP) PO SCH (09:35)
[2023-11-07 10:07] LABS: HEMATOCRIT 37.9 % (35.4-49); HEMOGLOBIN 12.4 GM/dL (11.7-16.9); MCHC 32.6 g/dl (32.0-35.9); MEAN CELL VOLUME 91.9 fl (80-96); MEAN PLT VOLUME 8.8 fl (7.5-11.1); PLATELET COUNT 234 10^3/uL (134-434); RBC 4.12 M/mm3 (4.00-5.60); WHITE BLOOD COUNT 5.1 K/mm3 (4.0-10.0)
[2023-11-07 11:23] LABS: CHLORIDE 105 mmol/L (98-107); POTASSIUM 4.1 mmol/L (3.5-5.1); SODIUM 140 mmol/L (136-145)
[2023-11-07 11:26] LABS: ALBUMIN 3.1 g/dl (3.4-5.0); ANION GAP 6 mmol/L (4-13); BLOOD UREA NITROGEN 10.4 mg/dL (7-18); CALCIUM 9.1 mg/dL (8.5-10.1); CO2 28 mmol/L (21-32)
[2023-11-07 11:27] LABS: GLUCOSE,RANDOM 94 mg/dL (74-106)
[2023-11-07 11:29] LABS: CREATININE 0.9 mg/dL (0.55-1.3); SGOT/AST 22 U/L (15-37); SGPT/ALT 18 U/L (13-61)
[2023-11-07 11:31] LABS: BILIRUBIN,TOTAL 0.8 mg/dL (0.2-1); TOT PROT 6.1 g/dl (6.4-8.2)
[2023-11-07 11:32] LABS: ALK PHOS 72 U/L (45-117)
[2023-11-08] MEDS ORDERED: diazePAM 5 MG TABLET PO SCH (06:00)
[2023-11-09] MEDS ORDERED: diazePAM 5 MG TABLET PO SCH (06:00)
[2023-11-10] MEDS ORDERED: diazePAM 5 MG TABLET PO ONE (06:00)
== END 2023-11-07 09:39 | disposition left against medical advice (07) | DRG 770 ==
LOC: YASAS 12:49 → Y3N 12:50
PROVIDERS: ADMIT Surgery; ATTEND Surgery
PROC: HZ2ZZZZ Detoxification Services for Substance Abuse Treatment (ICD-10-PCS; principal; 2023-11-06)
DX: F10.230 Alcohol dependence with withdrawal, uncomplicated (principal); F11.20 Opioid dependence, uncomplicated; F14.20 Cocaine dependence, uncomplicated; F17.210 Nicotine dependence, cigarettes, uncomplicated; F20.9 Schizophrenia, unspecified; I10 Essential (primary) hypertension; K70.30 Alcoholic cirrhosis of liver without ascites; B18.1 Chronic viral hepatitis B without delta-agent; M54.50 Low back pain, unspecified; G89.29 Other chronic pain
CPT/HCPCS: 36415; 80053; 80307; 85027; 86780

== ENCOUNTER 2024-05-20 14:18 | Inpatient (IN) | payer OTHER ==
[2024-05-20 14:36] VITALS: BMI 23.7
[2024-05-20] MEDS ORDERED: NALOXONE (NARCAN) HCL 4 MG/0.1 ML SPRAY NS PRN (14:50)
[2024-05-20] MEDS ORDERED: NICOTINE POLACRILEX 2 MG GUM BUC PRN (14:50)
[2024-05-20] MEDS ORDERED: POLYETHYLENE GLYCOL (HEALTHYLAX) 3350 17 GM PACKET PO PRN (14:50)
[2024-05-20] MEDS ORDERED: ACETAMINOPHEN 325 MG TABLET (FP) PO PRN (14:50)
[2024-05-20] MEDS ORDERED: LOPERAMIDE HCL 2 MG CAPSULE PO PRN (14:50)
[2024-05-20] MEDS ORDERED: NICOTINE POLACRILEX 2 MG LOZENGE BC PRN (14:50)
[2024-05-20] MEDS ORDERED: ONDANSETRON *ODT* 4 MG TABLET SL PRN (14:50)
[2024-05-20] MEDS ORDERED: guaiFENesin 600 MG TABLET.ER (FP) PO PRN (14:50)
[2024-05-20] MEDS ORDERED: BENZONATATE 200 MG CAPSULE PO PRN (14:50)
[2024-05-20] MEDS ORDERED: MAGNESIUM HYDROX 2400MG/30ML ORAL SUSPENSION 30 ML CUP PO PRN (14:50)
[2024-05-20] MEDS ORDERED: MAG HYDROX/AL HYDROX/SIMETH 30 ML UNIT-DOSE CUP PO PRN (14:50)
[2024-05-20] MEDS ORDERED: DICYCLOMINE HCL 10 MG CAPSULE PO PRN (14:50)
[2024-05-20] MEDS ORDERED: BISMUTH SUBSALICYLATE 524 MG/30 ML PO PRN (14:50)
[2024-05-20] MEDS ORDERED: IBUPROFEN 400 MG TABLET (FP) PO PRN (14:50)
[2024-05-20] MEDS ORDERED: BENZOCAINE/MENTHOL (CHLORASEPTIC ) LOZENGE MM PRN (14:50)
[2024-05-20] MEDS ORDERED: hydrOXYzine PAMOATE 25 MG CAPSULE (FP) PO PRN (14:50)
[2024-05-20] MEDS: amLODIPine BESYLATE 10 MG TABLET (FP) PO SCH (17:59)
[2024-05-20] MEDS: THIAMINE 100 MG TABLET PO SCH (22:09)
[2024-05-20] MEDS: MELATONIN 5 MG TABLETS PO SCH (22:09)
[2024-05-20] MEDS: METHOCARBAMOL 500 MG TABLET PO PRN (22:10)
[2024-05-21] MEDS: IBUPROFEN 600 MG TABLET (FP) PO PRN (01:52)
[2024-05-21 09:32] VITALS: BP 155/89; PULSE 62; RESP 18; TEMP 97.6
[2024-05-21] MEDS ORDERED: methaDONE HCL 10 MG TABLET PO SCH (09:45)
[2024-05-21 10:00] LABS: HEMATOCRIT 40.9 % (35.4-49); HEMOGLOBIN 13.2 GM/dL (11.7-16.9); MCH 30.1 pg (25.7-33.7); MCHC 32.3 g/dl (32.0-35.9); MEAN CELL VOLUME 93.2 fl (80-96); MEAN PLT VOLUME 8.7 fl (7.5-11.1); PLATELET COUNT 288 10^3/uL (134-434); RBC 4.39 M/mm3 (4.00-5.60); RDW 14.2 % (11.9-15.9); WHITE BLOOD COUNT 6.2 K/mm3 (4.0-10.0)
[2024-05-21] MEDS: methaDONE 40 MG, methaDONE 20 MG PO SCH (10:19)
[2024-05-21] MEDS: ARIPiprazole 5 MG TABLET PO SCH (10:21)
[2024-05-21] MEDS: PRENATAL VITAMINS W/ FOLIC ACID TABLET (FP) PO SCH (10:21)
[2024-05-21 10:31] LABS: ALBUMIN 3.3 g/dl (3.4-5.0); ANION GAP 6 mmol/L (4-13); BLOOD UREA NITROGEN 20.8 mg/dL (7-18); CALCIUM 8.9 mg/dL (8.5-10.1); CHLORIDE 106 mmol/L (98-107); CO2 26 mmol/L (21-32); CREATININE 1.1 mg/dL (0.55-1.3); GLUCOSE,RANDOM 101 mg/dL (74-106); POTASSIUM 4.4 mmol/L (3.5-5.1); SGOT/AST 19 U/L (15-37); SGPT/ALT 15 U/L (13-61); SODIUM 138 mmol/L (136-145)
[2024-05-21 10:32] LABS: BILIRUBIN,TOTAL 0.6 mg/dL (0.2-1); TOT PROT 6.6 g/dl (6.4-8.2)
[2024-05-21 10:33] LABS: ALK PHOS 79 U/L (45-117)
[2024-05-21] MEDS ORDERED: SUVOREXANT 10 MG TABLET PO PRN (22:00)
== END 2024-05-21 11:45 | disposition home or self-care (01) | DRG 773 ==
LOC: YASAS 14:18 → Y3N 15:40
PROVIDERS: ADMIT Neuromusculoskeletal Medicine & OMM; ATTEND Allergy & Immunology
PROC: HZ2ZZZZ Detoxification Services for Substance Abuse Treatment (ICD-10-PCS; principal; 2024-05-20)
DX: F11.20 Opioid dependence, uncomplicated (principal); F10.20 Alcohol dependence, uncomplicated; F14.20 Cocaine dependence, uncomplicated; F17.210 Nicotine dependence, cigarettes, uncomplicated; F20.9 Schizophrenia, unspecified; I10 Essential (primary) hypertension; K74.60 Unspecified cirrhosis of liver; M19.90 Unspecified osteoarthritis, unspecified site; M54.50 Low back pain, unspecified; G89.29 Other chronic pain; Z99.89 Dependence on other enabling machines and devices
CPT/HCPCS: 36415; 80053; 80305; 80307; 85027; 86780; 93005; 93010